=== PATIENT | female | born 1960 | race Caucasian/White ===

== ENCOUNTER → 2016-10-29 | Outpatient (CLI) | payer MEDICAID ==
--- NOTE | 2016-10-29 14:37 | XR ---
EXAMINATION TYPE: XR knee complete LT DATE OF EXAM: 10/29/2016 2:25 PM COMPARISON: NONE HISTORY: Pain TECHNIQUE: 3 views are submitted. FINDINGS: Hypertrophic change and narrowing of the medial compartment of the knee joint and patellofemoral join t noted. Osseous structures are intact. No acute fracture seen. IMPRESSION: 1. No acute fracture or dislocation. 2. Osteoarthritis.
== END | disposition home or self-care (01) ==
LOC: RADXRMAIN 14:09
PROVIDERS: ATTEND Internal Medicine Geriatric Medicine
DX: M17.12 Unilateral primary osteoarthritis, left knee (principal)

== ENCOUNTER → 2016-10-29 | Outpatient (CLI) | payer MEDICAID ==
[2016-10-29 14:23] LABS: Basophils # (A) 0.1 k/uL (0-0.2); Basophils % (A) 1 %; CH 30.9; CHCM 34.4; Eosinophils # (A) 0.3 k/uL (0-0.7); Eosinophils % (A) 3 %; HCT 40.9 % (34.0-46.0); HDW 2.94; HGB 13.4 gm/dL (11.4-16.0); Luc # (Auto) 0.27; Luc % (Auto) 3; Lymphocytes # (A) 2.3 k/uL (1.0-4.8); Lymphocytes % (A) 22 %; MCH 29.6 pg (25.0-35.0); MCHC 32.8 g/dL (31.0-37.0); MCV 90.2 fL (80.0-100.0); Mean Platelet Volume 7.2; Monocytes # (A) 0.4 k/uL (0-1.0); Monocytes % (A) 4 %; Neutrophils # (A) 7.3 k/uL (1.3-7.7); Neutrophils % (A) 68 %; RBC 4.54 m/uL (3.80-5.40); RDW 12.9 % (11.5-15.5); WBC 10.6 k/uL (3.8-10.6); WBC (Perox) 10.96
[2016-10-29 14:35] LABS: ALT 34 U/L (9-52); AST 21 U/L (14-36); Alkaline Phosphatase 113 U/L (38-126); Anion Gap 14 mmol/L; Blood Urea Nitrogen 30 mg/dL (7-17); Calcium 9.6 mg/dL (8.4-10.2); Carbon Dioxide 27 mmol/L (22-30); Chloride 102 mmol/L (98-107); Glucose 151 mg/dL (74-99); Non-African American GFR(MDRD) 54 (>60 ml/min/1.73 sqM); Potassium 4.4 mmol/L (3.5-5.1); Sodium 143 mmol/L (137-145); Total Bilirubin 0.5 mg/dL (0.2-1.3); Total Protein 7.2 g/dL (6.3-8.2)
--- NOTE | 2016-10-29 15:06 | US ---
EXAMINATION TYPE: US venous doppler duplex LE LT DATE OF EXAM: 10/29/2016 2:42 PM COMPARISON: NONE CLINICAL HISTORY: R60.0 Edema. Pt states left leg pain and swelling SIDE PERFORMED: Left Grayscale, color Doppler, spectral Doppler imaging performed of the deep veins of the left lower extr emity. Left common femoral, superficial femoral, popliteal veins all compress normally and show no ab normal luminal echoes, there is normal color flow Left Leg: Negative for DVT IMPRESSION: No evident deep venous thrombosis within the deep veins of the left lower extremity as d escribed.
[2016-10-29 15:14] LABS: Hemoglobin A1C 6.6 % (4.2-6.1)
== END | disposition home or self-care (01) ==
LOC: RADUSWWP 13:34
PROVIDERS: ATTEND Internal Medicine Geriatric Medicine
DX: R60.0 Localized edema (principal); M79.605 Pain in left leg
CPT/HCPCS: 36415; 80053; 83036; 85025

== ENCOUNTER → 2017-07-07 | Outpatient (CLI) | payer MEDICAID | END | disposition home or self-care (01) | LOC: LABWHC1 11:21 | DX: D32.0 Benign neoplasm of cerebral meninges (principal) | CPT/HCPCS: 36415; 82565; 84520 ==

== ENCOUNTER → 2017-08-06 | Outpatient (CLI) | payer MEDICAID ==
--- NOTE | 2017-08-07 13:31 | MM ---
Reason for exam: screening (asymptomatic). Last mammogram was performed 1 year ago. History: Patient is postmenopausal and history of other cancer. Family history of breast cancer in paternal grandmother. Physical Findings: A clinical breast exam by your physician is recommended on an annual basis and results should be correlated with mammographic findings. MG 3D Screening Mammo W/Cad Bilateral CC and MLO view(s) were taken. Prior study comparison: August 06, 2016, bilateral MG 3d screening mammo w/cad. August 01, 2015, bilateral MG screening mammo w CAD. The breast tissue is heterogeneously dense. This may lower the sensitivity of mammography. No suspicious abnormality. No significant changes when compared with prior studies. ASSESSMENT: Negative, BI-RAD 1 RECOMMENDATION: Routine screening mammogram of both breasts in 1 year.
== END | disposition home or self-care (01) ==
LOC: RADMAMWWP 16:16
PROVIDERS: ATTEND Internal Medicine Geriatric Medicine
DX: Z12.31 Encounter for screening mammogram for malignant neoplasm of breast (principal)
CPT/HCPCS: 77063; G0202

== ENCOUNTER → 2017-09-23 | Outpatient (CLI) | payer MEDICAID ==
[2017-09-23 08:40] LABS: HCT 39.2 % (34.0-46.0); MCH 29.6 pg (25.0-35.0); MCHC 33.2 g/dL (31.0-37.0); Mean Platelet Volume 7.3; Platelet Count 243 k/uL (150-450); RBC 4.41 m/uL (3.80-5.40); WBC 8.6 k/uL (3.8-10.6)
[2017-09-23 08:59] LABS: Appearance,Urine Clear (Clear); Bilirubin,Urine Negative (Negative); Blood,Urine Negative (Negative); Color,Urine Yellow; Glucose,Urine (UA) 3+ (Negative); Ketones,Urine Negative (Negative); Leukocyte Esterase,Urine Moderate (Negative); Mucus,Urine Rare /hpf; Nitrite,Urine Negative (Negative); Protein,Urine Negative (Negative); RBC,Urine <1 /hpf (0-5); Specific Gravity,Urine 1.011 (1.001-1.035); Squamous Epithelial Cell,Urine 8 /hpf (0-4); Urobilinogen,Urine <2.0 mg/dL (<2.0); WBC,Urine 5 /hpf (0-5)
[2017-09-23 09:05] LABS: ALT 25 U/L (9-52); AST 14 U/L (14-36); Albumin 4.2 g/dL (3.5-5.0); Alkaline Phosphatase 122 U/L (38-126); Anion Gap 14 mmol/L; Blood Urea Nitrogen 22 mg/dL (7-17); Calcium 9.8 mg/dL (8.4-10.2); Carbon Dioxide 25 mmol/L (22-30); Chloride 102 mmol/L (98-107); Glucose 214 mg/dL (74-99); Phosphorus 3.7 mg/dL (2.5-4.5); Sodium 141 mmol/L (137-145); Total Bilirubin 0.4 mg/dL (0.2-1.3)
[2017-09-23 09:07] LABS: Potassium 4.8 mmol/L (3.5-5.1)
== END | disposition home or self-care (01) ==
LOC: LABWHC1 07:31
PROVIDERS: ATTEND Internal Medicine Nephrology
DX: N39.0 Urinary tract infection, site not specified (principal); E83.39 Other disorders of phosphorus metabolism; D64.9 Anemia, unspecified
CPT/HCPCS: 36415; 80053; 81001; 84100; 85027

== ENCOUNTER → 2017-10-22 | Outpatient (CLI) | payer MEDICAID ==
--- NOTE | 2017-10-23 11:15 | BD ---
EXAMINATION TYPE: MG DEXA axial skeleton. DATE OF EXAM: 10/22/2017 COMPARISON: NONE CLINICAL HISTORY: Age- related osteoporosis M81.0 Height: 5 FT 7 1/4 IN Weight: 230 FRAX RISK QUESTIONS: Alcohol (3 or more units per day): NO Family History (Parent hip fracture): NO Glucocorticoids (More than 3mos): NO (Ex: prednisone, prednisolone, methylprednisolone, dexamethasone, and hydrocortisone). History of Fracture in Adulthood: NO Secondary Osteoporosis: 1. Type 1 Diabetes: NO 2. Hyperthyroidism: NO 3. Menopause before 45: NO 4. Malnutrition: NO 5. Chronic liver disease: NO Rheumatoid Arthritis: NO Current Tobacco Use: NO RISK FACTORS HISTORY OF: Family History of Osteoporosis: YES Active: YES Postmenopausal woman: PART HYST AGE 54 MEDICATIONS: Additional Medications: METFORMIN,LISINOPRIL, NORVASC, ASPIRIN, LIPITOR, Additional History: EXAM MEASUREMENTS: Bone mineral densitometry was performed using the [employer]. Bone mineral density as measured about the Lumbar spine is: ----- L1-L4(G/cm2): 1.416 T Score Values are as follows: ----- L2: 2.5 ----- L3: 2.0 ----- L4: 1.8 ----- L1-L4: 2.0 BASELINE Bone mineral density about the R hip (g/cm2): 1.041 Bone mineral density about the L hip (g/cm2): 1.029 T Score values are as follows: -----R Neck: 0.0 -----L Neck: -0.1 -----R Total: 0.1 -----L Total: 0.1 BASELINE IMPRESSION: No evidence for osteoporosis or osteopenia. NOTE: T-SCORE=SD OF THE YOUNG ADULT MEAN.
== END | disposition home or self-care (01) ==
LOC: RADBDWWP 13:52
PROVIDERS: ATTEND Internal Medicine Geriatric Medicine
DX: M81.0 Age-related osteoporosis without current pathological fracture (principal)
CPT/HCPCS: 77080

== ENCOUNTER → 2017-11-02 | Outpatient (CLI) | payer MEDICAID ==
[2017-11-02 07:41] LABS: Appearance,Urine Clear (Clear); Bilirubin,Urine Negative (Negative); Blood,Urine Negative (Negative); Color,Urine Yellow; Glucose,Urine (UA) 1+ (Negative); Ketones,Urine Negative (Negative); Leukocyte Esterase,Urine Trace (Negative); Mucus,Urine Rare /hpf; Nitrite,Urine Negative (Negative); Protein,Urine Negative (Negative); RBC,Urine 1 /hpf (0-5); Specific Gravity,Urine 1.012 (1.001-1.035); Squamous Epithelial Cell,Urine 1 /hpf (0-4); Urobilinogen,Urine <2.0 mg/dL (<2.0); WBC,Urine 2 /hpf (0-5)
[2017-11-02 07:59] LABS: Albumin 4.1 g/dL (3.5-5.0); Calcium 9.8 mg/dL (8.4-10.2); Magnesium 1.5 mg/dL (1.6-2.3); Phosphorus 4.1 mg/dL (2.5-4.5); Potassium 4.4 mmol/L (3.5-5.1); Total Bilirubin 0.5 mg/dL (0.2-1.3); Uric Acid 5.2 mg/dL (3.7-7.4)
[2017-11-02 08:21] LABS: Basophils # (A) 0.1 k/uL (0-0.2); Basophils % (A) 1 %; Eosinophils # (A) 0.4 k/uL (0-0.7); Eosinophils % (A) 6 %; HGB 13.3 gm/dL (11.4-16.0); Lymphocytes # (A) 1.6 k/uL (1.0-4.8); Lymphocytes % (A) 23 %; MCH 31.1 pg (25.0-35.0); MCV 86.5 fL (80.0-100.0); Mean Platelet Volume 7.1; Monocytes # (A) 0.3 k/uL (0-1.0); Monocytes % (A) 4 %; Neutrophils # (A) 4.7 k/uL (1.3-7.7); Neutrophils % (A) 66 %; Platelet Count 213 k/uL (150-450); RBC 4.28 m/uL (3.80-5.40); WBC 7.1 k/uL (3.8-10.6)
[2017-11-02 11:04] LABS: Iron Saturation 22.16 (12.00-45.00)
[2017-11-02 11:11] LABS: Parathyroid Hormone Intact 69.6 pg/mL (14.0-72.0)
[2017-11-02 11:12] LABS: Vitamin D 25 Hydroxy 25.8 ng/mL (30.0-100.0)
[2017-11-02 11:51] LABS: Folate, Serum 14.2 ng/mL
[2017-11-04 16:18] LABS: Albumin 4.18 g/dL (3.80-4.90); Gamma Globulin 0.95 g/dL (0.70-1.50)
== END | disposition home or self-care (01) ==
LOC: LABWHC1 06:47
PROVIDERS: ATTEND Internal Medicine Nephrology
DX: E11.22 Type 2 diabetes mellitus with diabetic chronic kidney disease (principal); N18.3 Chronic kidney disease, stage 3 (moderate); E55.9 Vitamin D deficiency, unspecified; E21.3 Hyperparathyroidism, unspecified; E83.39 Other disorders of phosphorus metabolism; M10.9 Gout, unspecified; N39.0 Urinary tract infection, site not specified; D64.9 Anemia, unspecified
CPT/HCPCS: 36415; 80053; 80061; 81001; 82306; 82607; 82728; 82746; 83036; 83540; 83550; 83735; 83970; 84100; 84165; 84550; 85025; 86335

== ENCOUNTER → 2017-11-12 | Outpatient (CLI) | payer MEDICAID ==
--- NOTE | 2017-11-13 17:04 | MR ---
EXAMINATION TYPE: MR knee LT wo con DATE OF EXAM: 11/12/2017 COMPARISON: Radiographs 10/29/2016 HISTORY: 57 year-old female left knee pain, Osteoarthritis TECHNIQUE: Multiplanar, multisequence imaging of the left knee is performed without IV contrast. FINDINGS: ACL and PCL are intact. Mild edematous change within the soft tissues adjacent to the intact MCL. LCL complex is intact. The medial meniscus is diffusely degenerative, torn, and extruded. There is severe full-thickness car tilage loss especially along the mid and peripheral weightbearing aspect of the medial compartment wi th extensive degenerative subchondral cystic changes and marrow edema. Marginal spurring. The extrude d medial meniscus has mass effect and causes bowing of the MCL. Some degenerative signal within the anterior horn of the lateral meniscus. Marginal spurring in the l ateral compartment. Focal moderate thickness cartilage fissure along the mid patella and mild irregular cartilage loss al geeta the trochlear facets. There is marginal spurring in the patellofemoral compartment. Extensor mechanism is intact. Nonspecific anterior subcutaneous soft tissue swelling. A large knee joint effusion without significant Pappas's cyst. Mild muscular edema within the upper la teral gastrocnemius. Normal popliteal artery anatomy with mild diffuse muscular atrophy. No suspicious bone marrow replace ment. IMPRESSION: 1. Severe medial compartment osteoarthrosis with a diffusely degenerative, torn, and extruded medial meniscus. 2. Grade 1 MCL sprain. 3. Within the patellofemoral compartment, there is a focal area of moderate thickness cartilage loss along the mid patella. Marginal spurring and mild superficial cartilage irregularity along the trochl ear facets. 4. Large knee joint effusion.
== END | disposition home or self-care (01) ==
LOC: RADMRIMAIN 12:32
PROVIDERS: ATTEND Orthopaedic Surgery
DX: S83.412A Sprain of medial collateral ligament of left knee, initial encounter (principal); S83.242A Other tear of medial meniscus, current injury, left knee, initial encounter; M76.892 Other specified enthesopathies of left lower limb, excluding foot; M17.12 Unilateral primary osteoarthritis, left knee

== ENCOUNTER → 2018-01-26 | Outpatient (CLI) | payer MEDICAID ==
[2018-01-26 12:22] LABS: T4, Free (Free Thyroxine) 1.1 ng/dL (0.78-2.19)
[2018-01-26 17:33] LABS: Hemoglobin A1C 6.6 % (4.0-6.0)
== END | disposition home or self-care (01) ==
LOC: LABWHC1 07:40
PROVIDERS: ATTEND Nurse Practitioner Family
DX: E11.9 Type 2 diabetes mellitus without complications (principal); E07.9 Disorder of thyroid, unspecified
CPT/HCPCS: 36415; 82043; 82570; 83036; 84439; 84443

== ENCOUNTER → 2018-01-26 | Outpatient (CLI) | payer MEDICAID ==
[2018-01-26 10:33] LABS: Appearance,Urine Clear (Clear); Bilirubin,Urine Negative (Negative); Blood,Urine Negative (Negative); Color,Urine Light Yellow; Glucose,Urine (UA) Negative (Negative); Ketones,Urine Negative (Negative); Leukocyte Esterase,Urine Negative (Negative); Nitrite,Urine Negative (Negative); Protein,Urine Negative (Negative); Specific Gravity,Urine 1.007 (1.001-1.035); Urobilinogen,Urine <2.0 mg/dL (<2.0)
[2018-01-26 10:41] LABS: HCT 37.7 % (34.0-46.0); HGB 12.9 gm/dL (11.4-16.0); MCH 30.2 pg (25.0-35.0); MCHC 34.1 g/dL (31.0-37.0); MCV 88.4 fL (80.0-100.0); Mean Platelet Volume 7.3; Platelet Count 209 k/uL (150-450); RBC 4.26 m/uL (3.80-5.40); RDW 12.7 % (11.5-15.5); WBC 9.5 k/uL (3.8-10.6)
[2018-01-26 10:52] LABS: Albumin 4.4 g/dL (3.5-5.0); Total Protein 6.9 g/dL (6.3-8.2)
[2018-01-26 10:53] LABS: Calcium 9.7 mg/dL (8.4-10.2); Potassium 4.7 mmol/L (3.5-5.1); Total Bilirubin 0.5 mg/dL (0.2-1.3)
[2018-01-26 10:57] LABS: Prothrombin Time 9.6 sec (9.0-12.0)
[2018-01-26 11:53] LABS: Partial Thromboplastin Time 20.6 sec (22.0-30.0)
== END | disposition home or self-care (01) ==
LOC: LABPAT 07:37
PROVIDERS: ATTEND Orthopaedic Surgery
DX: Z01.818 Encounter for other preprocedural examination (principal)
CPT/HCPCS: 80053; 81003; 85027; 85610; 85730; 87070

== ENCOUNTER 2018-02-08 05:53 | Inpatient (IN) | payer MEDICAID ==
[2018-02-03 17:44] VITALS: BMI 33.5
[~2018-02-08 05:53] MED LIST: ACETAMINOPHEN TAB 500 MG TAB PO ONE; DEXAMETHASONE SOD PHOSPHATE 10 MG/ML 1 ML VIAL IV ONE; LACTATED RINGERS 1,000 ML IV SCH; MIDAZOLAM 2 MG/2 ML VIAL IV PRN; ONDANSETRON 4 MG/2 ML VIAL IVP ONE; ONDANSETRON ODT 4 MG TAB PO ONE; SCOPOLAMINE 1.5MG/72HR PATCH TRANSDERM ONE; TRANEXAMIC ACID 1,000 MG in SODIUM CHLORIDE 0.9% 50 ML IVPB ONE; ceFAZolin IN SWFI 2 GM/20 ML SYRINGE IVP ONE; fentaNYL (PF) 50 MCG/ML 2 ML AMP IV PRN
[2018-02-08] MEDS ORDERED: LIDOCAINE 1% 20 ML VIAL (10MG/ML) FOR IV START INTRADERMA ONE (06:45)
[2018-02-08 07:08] LABS: Glucose,Whole Blood 98 mg/dL (75-99)
[2018-02-08] MEDS ORDERED: ROPIVACAINE 246.25 MG, EPINEPHrine 0.5 MG, KETOROLAC 30 MG, cloNIDine HCL/PF 80 MCG, WA... MISCELLANE ONE ×5 (07:43)
[2018-02-08] MEDS ORDERED: diphenhydrAMINE 50 MG/ML 1 ML VIAL ONE (07:46)
[2018-02-08] MEDS ORDERED: TRANEXAMIC ACID 1,000 MG/10 ML VIAL ONE (07:46)
[2018-02-08] MEDS ORDERED: fentaNYL (PF) 50 MCG/ML 2 ML AMP ONE (07:46)
[2018-02-08] MEDS ORDERED: PROPOFOL 10 MG/ML 20 ML VIAL IV ONE (07:46)
[2018-02-08] MEDS ORDERED: MIDAZOLAM 2 MG/2 ML VIAL ONE ×2 (07:46)
[2018-02-08] MEDS ORDERED: SODIUM CHLORIDE 0.9% 100 ML BAG ONE (07:46)
[2018-02-08] MEDS ORDERED: ceFAZolin 3,000 MG in SODIUM CHLORIDE 0.9% IRRIGATIO 3,000 ML IRRIGATION ONE (08:52)
[2018-02-08] MEDS ORDERED: LACTATED RINGERS 1,000 ML IV ONE ×4 (09:10)
[2018-02-08] MEDS ORDERED: HYDROcodone/APAP 5-325MG 1 EACH TAB PO PRN ×2 (10:26)
[2018-02-08] MEDS ORDERED: NALOXONE 0.4 MG/ML 1 ML VIAL IV PRN (10:26)
[2018-02-08] MEDS ORDERED: NA PHOS,M-B/NA PHOS,DI-BA 133 ML ENEMA RECTAL PRN (10:26)
[2018-02-08] MEDS ORDERED: hydrOXYzine PAMOATE 25 MG CAP PO PRN (10:26)
[2018-02-08] MEDS ORDERED: MAGNESIUM HYDROXIDE 2,400 MG/10 ML CUP PO PRN (10:26)
[2018-02-08] MEDS ORDERED: ONDANSETRON 4 MG/2 ML VIAL IVP PRN (10:26)
[2018-02-08] MEDS ORDERED: HYDROmorphone 0.5 MG/0.5 ML SYRINGE IVP PRN ×2 (10:26)
[2018-02-08] MEDS ORDERED: BISACODYL 10 MG SUPP RECTAL PRN (10:26)
[2018-02-08] MEDS ORDERED: LACTATED RINGERS 1,000 ML IV SCH (10:30)
[2018-02-08 10:32] LABS: Glucose,Whole Blood 168 mg/dL (75-99)
[2018-02-08 10:41] VITALS: RESP 16
--- NOTE | 2018-02-08 10:47 | XR ---
EXAMINATION TYPE: XR knee limited LT DATE OF EXAM: 02/08/2018 COMPARISON: NONE TECHNIQUE: Two views submitted HISTORY: Post op FINDINGS: There is a prosthetic knee in near anatomic alignment. There is soft tissue edema and emphysema. IMPRESSION: 1. Postoperative change. Appears in near-anatomic alignment
[2018-02-08] MEDS: INSULIN ASPART 100 UNIT/ML 1 ML 10 ML VIAL SQ SCH ×2 (12:51→17:10)
--- NOTE | 2018-02-08 13:08 | P.OP ---
Date of Procedure: 02/08/18 Procedure(s) Performed: PREOPERATIVE DIAGNOSIS: Left knee severe osteoarthritis with genu varum POSTOPERATIVE DIAGNOSIS: Left knee severe osteoarthritis with genu varum OPERATION: Left knee cemented total replacement arthroplasty. ANESTHESIA: Spinal ESTIMATED BLOOD LOSS: 100 ml. RECYCLING CENTER OPERATOR: Steph Whitehead PA-C (assistance with: patient positioning, retraction, exposure, hemostasis, leg positioning, implantation, irrigation, closure, dressing) COMPLICATIONS: None apparent. COMPONENTS IMPLANTED: Persona system from [employer] INDICATIONS: Mrs. King is a 57-year-old female with a history of knee osteoarthritis. The operation of knee replacement has been discussed at length in the office, as well as potential risks and complications. These are inclusive of, but not limited to: bleeding, infection, scarring, discomfort, blood vessel and nerve damage, need for further surgery, failure to relieve symptoms, persistence, recurrence, or worsening of problems, loosening, dislocation, wear, blood clot, pulmonary embolism, , gait dysfunction, stiffness, and other risks as discussed in the office. The patient elects to proceed and the consent form has been signed. PROCEDURE: The patient was taken to the operating room and positioned on the operating room table in the supine position. Anesthesia was initiated. Care was taken to make sure that all pressure points were adequately padded. The operative lower extremity was prepped and draped in the usual aseptic fashion using ChloraPrep. Ioban drape was used for the case and the patient received intravenous antibiotics within one hour of the incision. A standard leg ware was used for the case. Tourniquet was applied but was not inflated. Time-out was called confirming the patient's identity, side, procedure and administration of antibiotics. The incision was then created midline directly over the knee, carried down through skin and into the subcutaneous tissues and down to fascia. Full thickness subcutaneous medial flap was developed. Medial parapatellar arthrotomy was performed and the interior of the knee was inspected. There was end-stage osteoarthritis of the knee with a mild to moderate genu varum type deformity. The fat pad was excised and proximal medial release on the tibia was completed using meticulous dissection and a curved osteotome. The anterior cruciate ligament was taken down. Note was made of significant attrition of the anterior and significant degenerative appearance of the posterior cruciate ligaments. The exposure was excellent. The knee was flexed 90 degrees and the patella was everted. A spot was chosen on the femur approximately 1 cm anterior to the posterior cruciate ligament insertion and an intramedullary hole was created within the femur. The intramedullary guide was then set to 5 degrees of valgus. The distal cutting block was attached and pinned into position. An appropriate amount of distal femoral resection was set. The oscillating saw was then used to make the distal femoral cut. This cut was confirmed to be flat with the flat end of an osteotome. The retractors were placed around the tibia and the tibial surface was addressed. The angle and depth of resection was adjusted using an extramedullary cutting guide. The guide had a built-in 3 degree posterior slope cut. Once the cutting guide was adjusted appropriately and in line with the axis of the tibia and confirmed to be in good position in relation to the second metatarsal and transmalleolar axis, the tibial cut was then created with protection of the posterior neurovascular structures and the collateral ligaments. The tibial cut surface was removed and sized. Femoral sizing was then accomplished using anterior referencing. Care was taken to analyze the posterior condyles for signs of deficiency or severe wear, and adjustments to the guide were made, as appropriate. 3 degree external rotation pins were placed. The cutting jig for the femur was applied to these pins. The planned cuts were further analyzed prior to performing them with the oscillating saw. No femoral notching was produced. Bone fragments were removed and the cut surfaces were finished, as necessary, with a reciprocating saw. Spacer block technique was then used to confirm that the flexion and extension gaps were equal. Soft tissue releases and adjustment of the tibial and/or femoral cuts were made, as necessary, until the gaps were equal. This included release of the posterior cruciate ligament, which was tight in this patient and , if left unreleased, would have resulted in poor kinematics and possibly early loosening. The femur was then further finished for a posterior cruciate ligament substituting component. Patellar resurfacing was performed using a reamer. The size of the required patellar component was estimated and the patellar surface was then reamed down to a residual thickness which would recreate the [place] thickness with the component. The placement of the patellar component was influenced by the degree of patellar subluxation, if any, noted on the preoperative x-rays. Prior to placing trial components, anesthetic solution consisting of ropivicaine with epinephrine, ketorolac, and clonidine was injected carefully and methodically in a grid pattern using aspiration technique into the soft tissue around the knee circumferentially, starting with the deeper tissues first and progressing to fascia, and then finally the skin/subcutaneous tissue. Particular care was taken when injecting the posterior capsule. The trial components were inserted. The tibial tray was allowed to self center and the patella was noted to track very well. The position of the tibial component was marked and the tibia was then finished for a stemmed tibial component. Cement was mixed on the back table and applied to the final components. Trial components were removed and the cut surfaces of the bone were pulse lavaged thoroughly and dried. Cement was then applied to the tibial surface and pressurized into the surface using finger pressurization technique. The tibial component was then applied and excess cement was removed after it was impacted securely and noted to be flush with the cut surface. In similar fashion, the cement was applied to the cut femoral surface, pressurized in using finger pressurization and the component was impacted into place. Excess cement was removed. The polyethylene spacer was then implanted and locked into position. The patellar component was then applied in similar technique and a patellar clamp was used to hold the patella in place as the cement hardened. Once the cement had fully hardened, the knee was reinspected. Any other cement extrusion was removed and final kinematic testing showed range of motion from 0 to 130 degrees with excellent stability, both medially and laterally and appropriate alignment of the leg. Patellar tracking was excellent. The knee was then thoroughly pulse lavaged with normal saline. Hemostasis was obtained with electrocautery and IV tranexamic acid, 1 g given prior to inflation of the tourniquet and another gram given at the time of closure. Closure was with #2 Ethibond in the fascia and supplemented with #2 Quill, 2-0 Vicryl suture was used for the subcutaneous tissues and 3-0 Quill for the skin. Dermabond/Steri-Strips were then applied. A lightly compressive dressing was applied using Webril and an Benton wrap. The patient was then transferred to stretcher and taken to the recovery room in stable condition. Sponge and needle counts were correct.
[2018-02-08 14:55] VITALS: BP 135/72; PULSE 78; TEMP 96.9
--- NOTE | 2018-02-08 15:00 | P.CONS ---
History of Present Illness - Reason for Consult Consult date: 02/08/18 medical management - History of Present Illness This is a 57-year-old female, one of Dr. 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 Patient underwent left knee arthroplasty, she was evaluated today, she's doing well postoperatively. She denies any chest pain, calf pain, dizziness, shortness of breath, nausea or vomiting. Patient reports pain is well controlled, vital signs are stable. Review of Systems Constitutional: Denies chills, Denies fever Ears, nose, mouth and throat: Denies dysphagia, Denies headache, Denies hoarseness, Denies nasal congestion, Denies nasal discharge Cardiovascular: Denies chest pain, Denies edema, Denies leg edema, Denies orthopnea, Denies palpitations, Denies syncope Respiratory: Denies congestion, Denies cough, Denies dyspnea, Denies pain, Denies respiratory infections, Denies wheezing Gastrointestinal: Denies abdominal pain, Denies constipation, Denies diarrhea, Denies dyspepsia, Denies heartburn, Denies nausea, Denies vomiting Genitourinary: Denies flank pain, Denies hematuria, Denies kidney stones, Denies urgency, Denies urinary frequency Integumentary: Denies pruritus, Denies rash, Denies sores, Denies wounds Neurological: Denies confusion, Denies loss of vision, Denies paralysis, Denies paresthesias, Denies seizures, Denies tingling Psychiatric: Denies anxiety, Denies confusion, Denies insomnia, Denies irritability, Denies mood swings, Denies suicidal ideation Endocrine: Denies fatigue, Denies flushing, Denies palpitations, Denies weight change Past Medical History Past Medical History: CVA/TIA, Diabetes Mellitus, Hyperlipidemia, Hypertension, Osteoarthritis (OA), Renal Disease Additional Past Medical History / Comment(s): left basal ganglia stroke 2011-no residual effects, follows up w/Sam q6 mo. History of Any Multi-Drug Resistant Organisms: None Reported Past Surgical History: Bladder Surgery, Hernia Repair, Hysterectomy Additional Past Surgical History / Comment(s): Colonoscopy, Crainiotomy for Atypical Brain tumor Past Anesthesia/Blood Transfusion Reactions: No Reported Reaction Smoking Status: Never smoker - Past Family History Mother Family Medical History: Cancer Medications and Allergies Home Medications Medication Instructions Recorded Confirmed Type Aspirin 325 mg PO DAILY 07/22/16 02/08/18 History Atorvastatin [Lipitor] 20 mg PO HS 07/22/16 02/08/18 History Lisinopril [Zestril] 20 mg PO BID 07/22/16 02/08/18 History amLODIPine [Norvasc] 5 mg PO BID 07/22/16 02/08/18 History Cholecalciferol (Vitamin D3) 15,000 unit PO Q14D 02/03/18 02/08/18 History [Vitamin D3] Ferrous Sulfate [Feosol] 325 mg PO BID 02/03/18 02/08/18 History Insulin Glargine,Hum.rec.anlog 16 unit SQ HS 02/03/18 02/08/18 History [Lantus Solostar] glipiZIDE/METFORMIN HCL 2 tab PO BID 02/03/18 02/08/18 History [glipiZIDE/METFORMIN HCL 5-500 mg] HYDROcodone/APAP 5-325MG [[place] 1 - 2 each PO Q4-6H PRN #90 tab 02/08/18 Rx 5-325] Sennosides-Docusate Sodium 1 tab PO BID #60 tablet 02/08/18 Rx [Senokot-S] Warfarin [Coumadin] 2.5 mg PO DAILY #1 tab 02/08/18 Rx Allergies Allergy/AdvReac Type Severity Reaction Status Date / Time No Known Allergies Allergy Verified 02/08/18 12:32 Physical Exam Vitals: Vital Signs Temp Pulse Pulse Resp BP BP Pulse Ox 02/08/18 10:52 79 16 108/59 97 02/08/18 10:37 78 16 109/60 97 02/08/18 10:22 97.2 F L 78 17 104/56 93 L 02/08/18 06:52 98.0 F 85 16 173/82 97 Intake and Output 02/07/18 02/08/18 02/08/18 22:59 06:59 14:59 Intake Total 200 1001 Output Total 400 Balance 200 601 Intake: IV 200 1001 Output: Urine 300 Estimated Blood Loss 100 Other: Voiding Method Bedpan Weight 100.244 kg - Constitutional General appearance: cooperative, no no acute distress - EENT Eyes: EOMI, PERRLA, normal appearance ENT: hearing grossly normal, normal oropharynx - Neck Neck: no lymphadenopathy, normal ROM, no thyromegaly - Respiratory Respiratory: bilateral: CTA, negative: diminished, rales, rhonchi, wheezing - Cardiovascular Rhythm: regular Heart sounds: normal: S1, S2 - Gastrointestinal General gastrointestinal: no distended, no hepatomegaly, no organomegaly, soft, no tenderness - Integumentary Integumentary: normal, no rash, no ulcer - Neurologic Neurologic: CNII-XII intact - Musculoskeletal Musculoskeletal: strength equal bilaterally - Psychiatric Psychiatric: A&O x's 3, appropriate affect, intact judgment & insight Results Labs: Abnormal Lab Results - Last 24 Hours (Table) 02/08/18 Range/Units 10:28 POC Glucose (mg/dL) 168 H (75-99) mg/dL Assessment and Plan Plan: 1. Left knee osteoarthritis status post left knee arthroplasty, postop day 0. Will continue with Coumadin for anticoagulation, pain management per orthopedics orders, encouraged incentive spirometry. 2. Diabetes type 2. Continue with NovoLog per sliding scale and Levemir 16 units. 3. Hypertension. Norvasc 5 mg twice a day and lisinopril 20 mg twice a day 4. Hyperlipidemia. Continue atorvastatin 20 mg 5. Benign neoplasm of cerebral meninges status post craniotomy. Stable continue with routine MRIs, last one June, continues to follow Dr. Dwyer. 6. Chronic kidney disease stage II. Stable, continues to follow with nephrology as outpatient. 7. DVT and GI prophylaxis. Continue Coumadin The above impression and plan of care have been discussed and directed by signing physician. Danielle Tellez nurse practitioner acting as scribe for signing physician.
[2018-02-08] MEDS ORDERED: ceFAZolin IN SWFI 2 GM/20 ML SYRINGE IVP SCH (16:00)
[2018-02-08 17:35] LABS: Glucose,Whole Blood 340 mg/dL (75-99)
[2018-02-08] MEDS ORDERED: WARFARIN 5 MG TAB PO ONE (18:00)
[2018-02-08] MEDS ORDERED: INSULIN DETEMIR 100 UNIT/ML 10 ML VIAL SQ SCH (21:00)
[2018-02-08] MEDS ORDERED: LISINOPRIL 20 MG TAB PO SCH (21:00)
[2018-02-08] MEDS ORDERED: ATORVASTATIN 20 MG TAB PO SCH (21:00)
[2018-02-08] MEDS ORDERED: SENNOSIDES-DOCUSATE SODIUM 1 EACH TAB PO SCH (21:00)
[2018-02-08] MEDS ORDERED: FERROUS SULFATE 325 MG TAB PO SCH (21:00)
[2018-02-08] MEDS ORDERED: amLODIPine 5 MG TAB PO SCH (21:00)
[2018-02-09] MEDS ORDERED: MELOXICAM 7.5 MG TAB PO SCH (09:00)
[2018-02-15] MEDS ORDERED: CHOLECALCIFEROL 1,000 UNIT TAB PO SCH (09:00)
== END 2018-02-08 18:22 | disposition home health service (06) | DRG 470 ==
LOC: 2ORMAIN 05:53 → 3SUR 10:17
PROVIDERS: ADMIT Orthopaedic Surgery; ATTEND Orthopaedic Surgery
PROC: 0SRD0J9 Replacement of Left Knee Joint with Synthetic Substitute, Cemented, Open Approach (ICD-10-PCS; principal; 2018-02-08 07:30)
DX: M17.12 Unilateral primary osteoarthritis, left knee (principal); I12.9 Hypertensive chronic kidney disease with stage 1 through stage 4 chronic kidney disease, or unspecified chronic kidney disease; N18.2 Chronic kidney disease, stage 2 (mild); E11.22 Type 2 diabetes mellitus with diabetic chronic kidney disease; E78.00 Pure hypercholesterolemia, unspecified; E66.3 Overweight; Z79.01 Long term (current) use of anticoagulants; Z79.899 Other long term (current) drug therapy; Z86.011 Personal history of benign neoplasm of the brain; Z98.890 Other specified postprocedural states; Z83.3 Family history of diabetes mellitus; Z82.49 Family history of ischemic heart disease and other diseases of the circulatory system; Z90.710 Acquired absence of both cervix and uterus; Z79.82 Long term (current) use of aspirin; Z86.73 Personal history of transient ischemic attack (TIA), and cerebral infarction without residual deficits; Z91.81 History of falling; Z79.4 Long term (current) use of insulin; Z80.9 Family history of malignant neoplasm, unspecified; Z86.2 Personal history of diseases of the blood and blood-forming organs and certain disorders involving the immune mechanism; Z86.69 Personal history of other diseases of the nervous system and sense organs; Z68.33 Body mass index [BMI] 33.0-33.9, adult; Z86.39 Personal history of other endocrine, nutritional and metabolic disease
CPT/HCPCS: 88300

== ENCOUNTER → 2018-03-01 | Outpatient (CLI) | payer MEDICAID ==
--- NOTE | 2018-03-01 13:32 | US ---
EXAMINATION TYPE: Ultrasound MSK left knee, extensor mechanism DATE OF EXAM: 03/01/2018 COMPARISON: Radiographs 02/08/2018 CLINICAL HISTORY: 57-year-old female M25.562 Left knee pain,M17.12 Unilateral primary. Limited progre ss with physical therapy, unable to extend the knee. Technique: Multiple sonographic images of the left extensor mechanism including the quadriceps tendon and patellar tendons. FINDINGS: Findings suggest rupture of the quadriceps tendon. The proximal balled up stump is located approximat bryan 3.0 cm from the upper pole of the patella. There is an intervening gap of approximately 1.8 cm an d a 1.4 cm length of distal insertional fibers comprising the distal stump . The patellar tendon is i ntact and normal. IMPRESSION: 1. Quadriceps tendon rupture located 1.4 cm above the patellar insertion. The proximal stump is retra cted 3 cm from the upper pole of the patella. 2. The patellar tendon remains intact. Findings were discussed with the patient. Patient reports that she has an orthopedic appointment the following morning.
== END | disposition home or self-care (01) ==
LOC: RADUSWWP 09:23
PROVIDERS: ATTEND Orthopaedic Surgery
DX: S76.112A Strain of left quadriceps muscle, fascia and tendon, initial encounter (principal)

== ENCOUNTER 2018-03-05 07:00 | Day surgery (SDC) | payer MEDICAID ==
[2018-03-02 11:29] VITALS: BMI 33.5
[~2018-03-05 07:00] MED LIST changes: -LACTATED RINGERS 1,000 ML IV SCH; +LIDOCAINE 1% 20 ML VIAL (10MG/ML) FOR IV START INTRADERMA PRN; -ONDANSETRON ODT 4 MG TAB PO ONE; -SCOPOLAMINE 1.5MG/72HR PATCH TRANSDERM ONE
[2018-03-05] MEDS: LACTATED RINGERS 1,000 ML IV SCH ×3 (07:32→15:05)
[2018-03-05] MEDS ORDERED: ROPIVACAINE 246.25 MG, EPINEPHrine 0.5 MG, KETOROLAC 30 MG, cloNIDine HCL/PF 80 MCG, WA... MISCELLANE ONE ×5 (07:32)
[2018-03-05 07:44] LABS: Glucose,Whole Blood 142 mg/dL (75-99)
[2018-03-05 07:51] LABS: Prothrombin Time 9.7 sec (9.0-12.0)
[2018-03-05] MEDS ORDERED: MIDAZOLAM 2 MG/2 ML VIAL ONE (08:44)
[2018-03-05] MEDS ORDERED: fentaNYL (PF) 50 MCG/ML 2 ML AMP ONE (08:44)
[2018-03-05] MEDS ORDERED: PROPOFOL 10 MG/ML 20 ML VIAL IV ONE (08:44)
[2018-03-05] MEDS ORDERED: SODIUM CHLORIDE 0.9% 100 ML BAG ONE (08:44)
[2018-03-05] MEDS ORDERED: TRANEXAMIC ACID 1,000 MG/10 ML VIAL ONE (08:44)
[2018-03-05 10:55] VITALS: TEMP 97.2
[2018-03-05 11:07] LABS: Glucose,Whole Blood 192 mg/dL (75-99)
[2018-03-05 12:18] VITALS: RESP 18
[2018-03-05] MEDS ORDERED: HYDROcodone/APAP 5-325MG 1 EACH TAB PO ONE (14:25)
[2018-03-05 14:46] VITALS: BP 138/65; PULSE 90
--- NOTE | 2018-03-05 17:37 | P.OP ---
Date of Procedure: 03/05/18 Procedure(s) Performed: PREOPERATIVE DIAGNOSES: 1. Left knee quadriceps tendon rupture POSTOPERATIVE DIAGNOSES: 1. Left knee suture failure of quad repair following total knee replacement ( failure along suture line) PROCEDURES PERFORMED: 1. Quadriceps tendon repair, open using #5 and #2 FiberWire, #3 Ethibond, and #3 strata fix sutures ANESTHESIA: Spinal CAMP DISHWASHER: None COMPLICATIONS: None ESTIMATED BLOOD LOSS: 30 mL. DISPOSITION: To post-anesthesia care unit INDICATIONS: Berta is a 57-year-old female who lost active knee extension early after the total knee replacement. Ultrasound test showed ruptured quad tendon. She presents to the operating room for repair. I suspect that the quad has failed along the suture line considering the early loss of extension this patient experienced. I have discussed the risks of the procedure as well as potential complications as being inclusive of, but not limited to: Bleeding, infection, scarring, discomfort, blood vessel and/or nerve damage, need for further surgery, stiffness, weakness, persistent limp, need for further procedures, blood clot, pulmonary embolism, , and other risks. The patient is aware these risks and wishes to proceed with surgery. The consent form has been signed. PROCEDURE: After appropriate consent was obtained, the patient was taken to the operating room placed in the supine position. Anesthesia was initiated, and after confirmation of adequate anesthesia, the patient was carefully positioned. Care was taken to make sure that all pressure points were adequately padded. Prepping and draping were completed in the usual aseptic fashion using ChloraPrep. Timeout was called, confirming patient identity, side , procedure, and administration of antibiotics. Range of motion of the knee was gently tested and found to be -5 to 120. The limb was exsanguinated with an Esmarch bandage and the tourniquet was inflated to 350 mmHg. Incision was created along the previous incision line and carried down through skin into subcu tissues and down to fascia. Fascia was exposed with a blunt elevator and the extent of the medial parapatellar arthrotomy was exposed and inspected. There was obvious disruption of the suture line at the superior aspect of the patella. There was approximately a 2 cm gap in this location but healthy quad tendon was noted on both sides of the gap, indicating a suture line dehiscence. Suture material in this region was disrupted. A remnant of the #3 Vicryl and several small fragments of the strata fix were carefully removed using a rongeur. From the medial midportion of the patella down to the tibial tubercle, the fascial repair was intact and normal in appearance. Using a combination of elevator, knife, and curette, organizing tissue between the quadriceps tendon proper was carefully removed leaving healthy tissue to repair. Hemostasis was obtained using electrocautery after tourniquet deflation. The interior of the knee was thoroughly irrigated with normal saline as was the fascial area. 3 #5 FiberWire sutures were placed in interrupted [id number] fashion evenly spaced where the quad had . Next, #2 FiberWire was used to secure the areas between these sutures. Next, #3 Ethibond suture in 2 locations was used for additional support. Finally, a # 3 strata fix suture was placed in running fashion from the midportion of the medial aspect of the patella to the upper extent of the quad split. These sutures were all placed with the knee in approximately 45 of flexion. Next, 2-0 Vicryl sutures were used for the subcutaneous tissue followed by 20 strata fix suture for the skin in running subcuticular fashion. The knee was then placed into approximately 120 degrees of flexion and the Dermabond tape was used over the incision. Sterile dressing was applied. Patient tolerated the procedure well and taken to recovery room in stable condition. Knee immobilizer was applied. Sponge and needle counts were correct.
== END 2018-03-05 15:17 | disposition home or self-care (01) ==
LOC: OR 07:00
PROVIDERS: ATTEND Orthopaedic Surgery
DX: S76.112A Strain of left quadriceps muscle, fascia and tendon, initial encounter (principal); X58.XXXA Exposure to other specified factors, initial encounter; M25.462 Effusion, left knee; Z96.652 Presence of left artificial knee joint; I10 Essential (primary) hypertension; E78.5 Hyperlipidemia, unspecified; E11.9 Type 2 diabetes mellitus without complications; N28.9 Disorder of kidney and ureter, unspecified; Z79.01 Long term (current) use of anticoagulants; Z79.82 Long term (current) use of aspirin; Z79.891 Long term (current) use of opiate analgesic; Z79.4 Long term (current) use of insulin; Z79.899 Other long term (current) drug therapy; Z86.73 Personal history of transient ischemic attack (TIA), and cerebral infarction without residual deficits
CPT/HCPCS: 85610; 27385; J2250; J0171; J1100; J2405; J3010; J1885; J2795; J2704; J0735; J0690

== ENCOUNTER → 2018-04-27 | Outpatient (CLI) | payer MEDICAID ==
[2018-04-27 13:43] LABS: Basophils # (A) 0.1 k/uL (0-0.2); Basophils % (A) 1 %; Eosinophils # (A) 0.3 k/uL (0-0.7); Eosinophils % (A) 3 %; HCT 39.8 % (34.0-46.0); HGB 12.9 gm/dL (11.4-16.0); Lymphocytes # (A) 2.2 k/uL (1.0-4.8); Lymphocytes % (A) 20 %; MCH 28.5 pg (25.0-35.0); MCHC 32.4 g/dL (31.0-37.0); MCV 88.2 fL (80.0-100.0); Mean Platelet Volume 6.8; Monocytes # (A) 0.4 k/uL (0-1.0); Monocytes % (A) 4 %; Neutrophils # (A) 7.9 k/uL (1.3-7.7); Neutrophils % (A) 71 %; Platelet Count 240 k/uL (150-450); RBC 4.51 m/uL (3.80-5.40); RDW 13.3 % (11.5-15.5)
[2018-04-27 13:54] LABS: Appearance,Urine Cloudy (Clear); Bilirubin,Urine Negative (Negative); Blood,Urine Negative (Negative); Color,Urine Yellow; Glucose,Urine (UA) Negative (Negative); Hyaline Casts,Urine 6 /lpf (0-2); Ketones,Urine Negative (Negative); Leukocyte Esterase,Urine Large (Negative); Mucus,Urine Few /hpf; Nitrite,Urine Negative (Negative); Protein,Urine Trace (Negative); RBC,Urine 4 /hpf (0-5); Specific Gravity,Urine 1.025 (1.001-1.035); Squamous Epithelial Cell,Urine 7 /hpf (0-4); WBC,Urine 5 /hpf (0-5)
[2018-04-27 13:56] LABS: Albumin 4.3 g/dL (3.5-5.0); Calcium 9.9 mg/dL (8.4-10.2); Magnesium 1.3 mg/dL (1.6-2.3); Phosphorus 4.6 mg/dL (2.5-4.5); Potassium 4.4 mmol/L (3.5-5.1); Uric Acid 6.7 mg/dL (3.7-7.4)
[2018-04-27 19:11] LABS: Iron Saturation 18.57 (12.00-45.00)
[2018-04-27 20:07] LABS: Parathyroid Hormone Intact 52.6 pg/mL (14.0-72.0)
== END | disposition home or self-care (01) ==
LOC: LABWHC1 13:07
PROVIDERS: ATTEND Internal Medicine Nephrology
DX: N39.0 Urinary tract infection, site not specified (principal); M10.9 Gout, unspecified; D50.9 Iron deficiency anemia, unspecified; N18.3 Chronic kidney disease, stage 3 (moderate); E55.9 Vitamin D deficiency, unspecified
CPT/HCPCS: 36415; 80048; 81001; 82040; 82306; 82728; 83540; 83550; 83735; 83970; 84100; 84550; 85025

== ENCOUNTER → 2018-08-06 | Outpatient (CLI) | payer MEDICAID ==
--- NOTE | 2018-08-12 11:37 | MM ---
Reason for exam: screening (asymptomatic). Last mammogram was performed 1 year ago. History: Patient is postmenopausal and history of other cancer. Family history of breast cancer in paternal grandmother. Physical Findings: A clinical breast exam by your physician is recommended on an annual basis and results should be correlated with mammographic findings. MG 3D Screening Mammo W/Cad Bilateral CC and MLO view(s) were taken. Prior study comparison: August 06, 2017, bilateral MG 3d screening mammo w/cad. August 06, 2016, bilateral MG 3d screening mammo w/cad. The breast tissue is heterogeneously dense. This may lower the sensitivity of mammography. Lateral left asymmetric density does not persist on 3D views. No significant changes when compared with prior studies. ASSESSMENT: Negative, BI-RAD 1 RECOMMENDATION: Routine screening mammogram of both breasts in 1 year.
== END | disposition home or self-care (01) ==
LOC: RADMAMWWP 17:00
PROVIDERS: ATTEND Internal Medicine Geriatric Medicine
DX: Z12.31 Encounter for screening mammogram for malignant neoplasm of breast (principal)
CPT/HCPCS: 77063; 77067

== ENCOUNTER → 2018-12-03 | Outpatient (CLI) | payer MEDICAID ==
[2018-12-03 09:16] LABS: Basophils # (A) 0.1 k/uL (0-0.2); Basophils % (A) 1 %; Eosinophils # (A) 0.3 k/uL (0-0.7); Eosinophils % (A) 4 %; HCT 39.6 % (34.0-46.0); HGB 13.2 gm/dL (11.4-16.0); Lymphocytes # (A) 1.8 k/uL (1.0-4.8); Lymphocytes % (A) 23 %; MCH 30.8 pg (25.0-35.0); MCHC 33.4 g/dL (31.0-37.0); MCV 92.3 fL (80.0-100.0); Mean Platelet Volume 7.7; Monocytes # (A) 0.3 k/uL (0-1.0); Monocytes % (A) 4 %; Neutrophils # (A) 5.1 k/uL (1.3-7.7); Neutrophils % (A) 66 %; Platelet Count 238 k/uL (150-450); RBC 4.29 m/uL (3.80-5.40); RDW 13.5 % (11.5-15.5); WBC 7.8 k/uL (3.8-10.6)
[2018-12-03 09:18] LABS: Appearance,Urine Clear (Clear); Bilirubin,Urine Negative (Negative); Blood,Urine Negative (Negative); Color,Urine Light Yellow; Glucose,Urine (UA) 1+ (Negative); Ketones,Urine Negative (Negative); Leukocyte Esterase,Urine Small (Negative); Mucus,Urine Rare /hpf; Nitrite,Urine Negative (Negative); PH, Urine 6.5 (5.0-8.0); Protein,Urine Negative (Negative); Specific Gravity,Urine 1.018 (1.001-1.035); Squamous Epithelial Cell,Urine 2 /hpf (0-4); Urobilinogen,Urine <2.0 mg/dL (<2.0); WBC,Urine 2 /hpf (0-5)
[2018-12-03 16:57] LABS: Parathyroid Hormone Intact 81.6 pg/mL (14.0-72.0)
[2018-12-03 17:43] LABS: Iron Saturation 21.25 (12.00-45.00)
[2018-12-03 17:47] LABS: Albumin 4.5 g/dL (3.80-4.90); Anion Gap 6.8 mmol/L (4.00-12.00); Calcium 9.7 mg/dL (8.7-10.3); Carbon Dioxide 28.2 mmol/L (21.6-31.8); Magnesium 1.6 mg/dL (1.5-2.4); Phosphorus 3.7 mg/dL (2.4-5.1); Potassium 4.8 mmol/L (3.5-5.5); Uric Acid 6.7 mg/dL (2.9-7.7)
[2018-12-03 17:52] LABS: Vitamin D 25 Hydroxy 48.9 ng/mL (30.0-100.0)
[2018-12-03 18:21] LABS: Hemoglobin A1C 6.8 % (4.0-6.0)
[2018-12-03 19:54] LABS: Creatinine,Urine Random 68.3 mg/dL
[2018-12-03 19:55] LABS: Total Protein,Urine Random 13.3 mg/dL (0.0-13.5)
== END | disposition home or self-care (01) ==
LOC: LABWHC1 08:52
PROVIDERS: ATTEND Internal Medicine Nephrology
DX: E11.22 Type 2 diabetes mellitus with diabetic chronic kidney disease (principal); N18.3 Chronic kidney disease, stage 3 (moderate); D63.1 Anemia in chronic kidney disease; E55.9 Vitamin D deficiency, unspecified; N25.81 Secondary hyperparathyroidism of renal origin; M10.9 Gout, unspecified; N39.0 Urinary tract infection, site not specified
CPT/HCPCS: 36415; 80048; 81001; 82040; 82306; 82570; 82728; 83036; 83540; 83550; 83735; 83970; 84100; 84156; 84550; 85025

== ENCOUNTER → 2019-06-09 | Outpatient (CLI) | payer MEDICAID ==
[2019-06-09 10:27] LABS: Basophils # (A) 0.1 k/uL (0-0.2); Basophils % (A) 1 %; Eosinophils # (A) 0.3 k/uL (0-0.7); Eosinophils % (A) 4 %; HCT 38.3 % (34.0-46.0); Lymphocytes # (A) 2.1 k/uL (1.0-4.8); Lymphocytes % (A) 25 %; MCH 30.5 pg (25.0-35.0); MCV 89.9 fL (80.0-100.0); Mean Platelet Volume 6.4; Monocytes # (A) 0.4 k/uL (0-1.0); Monocytes % (A) 5 %; Neutrophils # (A) 5.5 k/uL (1.3-7.7); Neutrophils % (A) 64 %; Platelet Count 275 k/uL (150-450); RBC 4.26 m/uL (3.80-5.40); RDW 12.4 % (11.5-15.5); WBC 8.6 k/uL (3.8-10.6)
[2019-06-09 10:41] LABS: Appearance,Urine Clear (Clear); Bilirubin,Urine Negative (Negative); Blood,Urine Negative (Negative); Color,Urine Yellow; Glucose,Urine (UA) Trace (Negative); Ketones,Urine Negative (Negative); Leukocyte Esterase,Urine Negative (Negative); Nitrite,Urine Negative (Negative); PH, Urine 5.5 (5.0-8.0); Protein,Urine Negative (Negative); Specific Gravity,Urine 1.017 (1.001-1.035); Urobilinogen,Urine <2.0 mg/dL (<2.0)
[2019-06-09 17:16] LABS: % Iron Saturation 27.58 (12.00-45.00); Albumin 4.6 g/dL (3.80-4.90); Albumin/Globulin Ratio 2.19 (1.60-3.17); Anion Gap 7.9 mmol/L (4.00-12.00); BUN/Creat Ratio 30.77 Ratio (12.00-20.00); Carbon Dioxide 27.1 mmol/L (21.6-31.8); Chol/HDL Ratio 4.39; Globulin 2.1 g/dL (1.6-3.3); Magnesium 1.7 mg/dL (1.5-2.4); Non-African American GFR(CKD) 44.9 (60.0-200.0); Phosphorus 4.9 mg/dL (2.4-5.1); Potassium 5.1 mmol/L (3.5-5.5); Total Bilirubin 0.4 mg/dL (0.3-1.2); Total Protein 6.7 g/dL (6.2-8.2); Uric Acid 6.8 mg/dL (2.9-7.7)
[2019-06-09 17:25] LABS: Ferritin 35.5 ng/mL (10.0-291.0)
[2019-06-09 19:07] LABS: Hemoglobin A1C 5.6 % (4.0-6.0)
[2019-06-09 19:36] LABS: Urine Creatinine 108.5 mg/dL
[2019-06-09 19:51] LABS: Creatinine,Urine Random 110.4 mg/dL
== END | disposition home or self-care (01) ==
LOC: LABWHC1 09:35
PROVIDERS: ATTEND Internal Medicine Nephrology
DX: N18.3 Chronic kidney disease, stage 3 (moderate) (principal); R80.9 Proteinuria, unspecified; E83.42 Hypomagnesemia; E55.9 Vitamin D deficiency, unspecified; N25.81 Secondary hyperparathyroidism of renal origin; M10.9 Gout, unspecified; N39.0 Urinary tract infection, site not specified; D63.1 Anemia in chronic kidney disease
CPT/HCPCS: 36415; 80053; 80061; 81003; 82043; 82306; 82570; 82728; 83036; 83540; 83550; 83735; 83970; 84100; 84156; 84439; 84443; 84550; 85025

== ENCOUNTER → 2019-07-04 | Outpatient (CLI) | payer MEDICAID ==
[2019-07-05 06:48] LABS: African American GFR (CKD) 57.3 (60.0-200.0); Anion Gap 10.9 mmol/L (4.00-12.00); BUN/Creat Ratio 34.17 Ratio (12.00-20.00); Calcium 9.5 mg/dL (8.7-10.3); Carbon Dioxide 25.1 mmol/L (21.6-31.8); Non-African American GFR(CKD) 49.4 (60.0-200.0); Potassium 4.7 mmol/L (3.5-5.5)
== END | disposition home or self-care (01) ==
LOC: LABWHC1 14:45
PROVIDERS: ATTEND Nurse Practitioner Family
DX: N18.3 Chronic kidney disease, stage 3 (moderate) (principal)
CPT/HCPCS: 36415; 80048

== ENCOUNTER → 2019-08-11 | Outpatient (CLI) | payer MEDICAID ==
--- NOTE | 2019-08-15 09:23 | MM ---
Reason for exam: screening (asymptomatic). Last mammogram was performed 1 year ago. History: Patient is postmenopausal and history of other cancer. Family history of breast cancer in paternal grandmother. Took hormonal contraceptives for 5 years. Physical Findings: A clinical breast exam by your physician is recommended on an annual basis and results should be correlated with mammographic findings. MG 3D Screening Mammo W/Cad Bilateral CC and MLO view(s) were taken. Prior study comparison: August 01, 2015, bilateral MG screening mammo w CAD. July 31, 2014, bilateral MG screening mammo w CAD. The breast tissue is heterogeneously dense. This may lower the sensitivity of mammography. There is chronic nodularity in the right upper outer quadrant. No significant changes when compared with prior studies. ASSESSMENT: Negative, BI-RAD 1 RECOMMENDATION: Routine screening mammogram of both breasts in 1 year.
== END ==
LOC: RADMAMWWP 14:58
PROVIDERS: ATTEND Internal Medicine Geriatric Medicine
DX: Z12.31 Encounter for screening mammogram for malignant neoplasm of breast (principal)
CPT/HCPCS: 77063; 77067

== ENCOUNTER → 2020-01-05 | Outpatient (CLI) | payer MEDICAID ==
[2020-01-05 11:58] LABS: Appearance,Urine Cloudy (Clear); Bacteria,Urine Rare /hpf; Bilirubin,Urine Negative (Negative); Blood,Urine Negative (Negative); Color,Urine Yellow; Glucose,Urine (UA) Trace (Negative); Ketones,Urine Negative (Negative); Leukocyte Esterase,Urine Moderate (Negative); Mucus,Urine Rare /hpf; Nitrite,Urine Negative (Negative); Protein,Urine Negative (Negative); RBC,Urine 1 /hpf (0-5); Specific Gravity,Urine 1.018 (1.001-1.035); Squamous Epithelial Cell,Urine 8 /hpf (0-4); Urobilinogen,Urine <2.0 mg/dL (<2.0); WBC,Urine 2 /hpf (0-5)
[2020-01-05 12:36] LABS: Basophils # (A) 0.1 k/uL (0-0.2); Basophils % (A) 1 %; Eosinophils # (A) 0.3 k/uL (0-0.7); Eosinophils % (A) 4 %; HCT 40.8 % (34.0-46.0); HGB 13.1 gm/dL (11.4-16.0); Lymphocytes # (A) 1.9 k/uL (1.0-4.8); Lymphocytes % (A) 22 %; MCH 29.5 pg (25.0-35.0); MCHC 32.1 g/dL (31.0-37.0); Mean Platelet Volume 8.3; Monocytes # (A) 0.4 k/uL (0-1.0); Monocytes % (A) 5 %; Neutrophils # (A) 5.8 k/uL (1.3-7.7); Neutrophils % (A) 66 %; Platelet Count 241 k/uL (150-450); RBC 4.44 m/uL (3.80-5.40); RDW 12.1 % (11.5-15.5); WBC 8.7 k/uL (3.8-10.6)
[2020-01-05 15:16] LABS: Protein/Creatinine Ratio,Urine 0.058
[2020-01-05 20:17] LABS: % Iron Saturation 27.48 (12.00-45.00); African American GFR (CKD) 57.3 (60.0-200.0); Albumin 4.4 g/dL (3.80-4.90); Albumin/Globulin Ratio 1.83 (1.60-3.17); Anion Gap 7.2 mmol/L (4.00-12.00); BUN/Creat Ratio 27.5 Ratio (12.00-20.00); Calcium 9.7 mg/dL (8.7-10.3); Carbon Dioxide 24.8 mmol/L (21.6-31.8); Chol/HDL Ratio 3.52; Globulin 2.4 g/dL (1.6-3.3); LDL Cholesterol,Calculated 91.6 mg/dL (0.0-131.0); Magnesium 1.7 mg/dL (1.5-2.4); Non-African American GFR(CKD) 49.4 (60.0-200.0); Phosphorus 3.8 mg/dL (2.4-5.1); Potassium 5.1 mmol/L (3.5-5.5); Total Bilirubin 0.5 mg/dL (0.3-1.2); Total Protein 6.8 g/dL (6.2-8.2); Uric Acid 6.8 mg/dL (2.9-7.7); VLDL Calculation 19.4 mg/dL (5.00-40.00)
[2020-01-05 20:25] LABS: Ferritin 38.2 ng/mL (10.0-291.0)
[2020-01-05 21:53] LABS: Hemoglobin A1C 7.6 % (4.0-6.0)
== END | disposition home or self-care (01) ==
LOC: LABWHC1 08:34
PROVIDERS: ATTEND Internal Medicine Geriatric Medicine
DX: I12.9 Hypertensive chronic kidney disease with stage 1 through stage 4 chronic kidney disease, or unspecified chronic kidney disease (principal); N18.3 Chronic kidney disease, stage 3 (moderate); E11.22 Type 2 diabetes mellitus with diabetic chronic kidney disease; D63.1 Anemia in chronic kidney disease; N39.0 Urinary tract infection, site not specified; E55.9 Vitamin D deficiency, unspecified; E21.3 Hyperparathyroidism, unspecified; M10.9 Gout, unspecified; E78.2 Mixed hyperlipidemia
CPT/HCPCS: 36415; 80053; 80061; 81001; 82043; 82306; 82570; 82728; 83036; 83540; 83550; 83735; 83970; 84100; 84156; 84443; 84550; 85025

== ENCOUNTER → 2020-08-29 | Outpatient (CLI) | payer MEDICAID ==
--- NOTE | 2020-09-03 08:19 | MM ---
Reason for exam: screening (asymptomatic). Last mammogram was performed 1 year and 1 month ago. History: Patient is postmenopausal and history of other cancer. Family history of breast cancer in paternal grandmother. Took hormonal contraceptives for 5 years. Physical Findings: A clinical breast exam by your physician is recommended on an annual basis and results should be correlated with mammographic findings. MG 3D Screening Mammo W/Cad Bilateral CC and MLO view(s) were taken. Prior study comparison: August 11, 2019, bilateral MG 3d screening mammo w/cad. August 06, 2018, bilateral MG 3d screening mammo w/cad. The breast tissue is heterogeneously dense. This may lower the sensitivity of mammography. There is chronic nodularity in the right breast. No significant changes when compared with prior studies. ASSESSMENT: Negative, BI-RAD 1 RECOMMENDATION: Routine screening mammogram of both breasts in 1 year.
== END | disposition home or self-care (01) ==
LOC: RADMAMWWP 14:44
PROVIDERS: ATTEND Internal Medicine Geriatric Medicine
DX: Z12.31 Encounter for screening mammogram for malignant neoplasm of breast (principal)
CPT/HCPCS: 77063; 77067

== ENCOUNTER → 2021-04-22 | Outpatient (CLI) | payer MEDICAID ==
[2021-04-22 15:14] LABS: Basophils % (A) 1.2 %; Eosinophils # (A) 0.28 X 10*3/uL (0.04-0.35); Eosinophils % (A) 3.4 %; HCT 38.6 % (37.2-46.3); HGB 12.7 g/dL (12.0-15.0); Lymphocytes # (A) 2.16 X 10*3/uL (0.90-5.00); Lymphocytes % (A) 26.1 %; MCH 30.2 pg (27.0-32.0); MCHC 32.9 g/dL (32.0-37.0); MCV 91.7 fL (80.0-97.0); Mean Platelet Volume 10.8 fL (9.5-12.2); Monocytes # (A) 0.51 X 10*3/uL (0.20-1.00); Monocytes % (A) 6.2 %; Neutrophils # (A) 5.16 X 10*3/uL (1.80-7.70); Neutrophils % (A) 62.4 %; Platelet Count 205 X 10*3/uL (140-440); RBC 4.21 X 10*6/uL (4.10-5.20); RDW 12.2 % (11.5-14.5); WBC 8.27 X 10*3/uL (4.50-10.00)
[2021-04-22 16:11] LABS: African American GFR (CKD) 70.4 (60.0-200.0); Albumin 4.2 g/dL (3.80-4.90); Albumin/Globulin Ratio 1.75 (1.60-3.17); Anion Gap 7.8 mmol/L (4.00-12.00); Calcium 9.4 mg/dL (8.7-10.3); Carbon Dioxide 27.2 mmol/L (21.6-31.8); Chol/HDL Ratio 3.46; Globulin 2.4 g/dL (1.6-3.3); LDL Cholesterol,Calculated 92.8 mg/dL (0.0-131.0); Non-African American GFR(CKD) 60.8 (60.0-200.0); Potassium 4.4 mmol/L (3.5-5.5); Total Bilirubin 0.4 mg/dL (0.2-1.2); Total Protein 6.6 g/dL (6.2-8.2); VLDL Calculation 20.2 mg/dL (5.00-40.00)
[2021-04-22 18:22] LABS: Hemoglobin A1C 9.6 % (4.0-6.0)
[2021-04-22 18:45] LABS: Urine Creatinine 112.1 mg/dL
== END | disposition home or self-care (01) ==
LOC: LABWHC1 10:19
PROVIDERS: ATTEND Nurse Practitioner Family
DX: E11.9 Type 2 diabetes mellitus without complications (principal)
CPT/HCPCS: 36415; 80053; 80061; 82043; 82570; 83036; 84439; 84443; 85025

== ENCOUNTER → 2021-07-15 | Outpatient (CLI) | payer MEDICAID ==
[2021-07-15 08:02] LABS: Appearance,Urine Cloudy (Clear); Bilirubin,Urine Negative (Negative); Blood,Urine Negative (Negative); Color,Urine Light Yellow; Glucose,Urine (UA) 1+ (Negative); Ketones,Urine Negative (Negative); Leukocyte Esterase,Urine Moderate (Negative); Mucus,Urine Rare /hpf; Nitrite,Urine Negative (Negative); PH, Urine 6.5 (5.0-8.0); Protein,Urine Negative (Negative); RBC,Urine <1 /hpf (0-5); Specific Gravity,Urine 1.016 (1.001-1.035); Squamous Epithelial Cell,Urine 6 /hpf (0-4); Urobilinogen,Urine <2.0 mg/dL (<2.0); WBC,Urine 1 /hpf (0-5)
[2021-07-15 08:34] LABS: Creatinine,Urine Random 77.8 mg/dL; Protein/Creatinine Ratio,Urine 0.103
[2021-07-15 10:32] LABS: Basophils # (A) 0.11 X 10*3/uL (0.00-0.10); Basophils % (A) 1.4 %; Eosinophils # (A) 0.67 X 10*3/uL (0.04-0.35); Eosinophils % (A) 8.3 %; HCT 38.9 % (37.2-46.3); HGB 12.7 g/dL (12.0-15.0); Lymphocytes # (A) 1.79 X 10*3/uL (0.90-5.00); Lymphocytes % (A) 22.2 %; MCH 30.1 pg (27.0-32.0); MCHC 32.6 g/dL (32.0-37.0); MCV 92.2 fL (80.0-97.0); Mean Platelet Volume 10.6 fL (9.5-12.2); Monocytes % (A) 6.2 %; Neutrophils # (A) 4.97 X 10*3/uL (1.80-7.70); Neutrophils % (A) 61.4 %; Platelet Count 217 X 10*3/uL (140-440); RBC 4.22 X 10*6/uL (4.10-5.20); RDW 12.3 % (11.5-14.5); WBC 8.08 X 10*3/uL (4.50-10.00)
[2021-07-15 11:08] LABS: % Iron Saturation 15.08 (12.00-45.00); African American GFR (CKD) 70.4 (60.0-200.0); Albumin 4.2 g/dL (3.8-4.9); Anion Gap 11.4 mmol/L (10.00-18.00); BUN/Creat Ratio 22.1 Ratio (12.00-20.00); Blood Urea Nitrogen 22.1 mg/dL (9.0-27.0); Calcium 9.5 mg/dL (8.7-10.3); Carbon Dioxide 26.6 mmol/L (20.0-27.5); Ferritin 21.8 ng/mL (10.0-291.0); Magnesium 2.1 mg/dL (1.5-2.4); Non-African American GFR(CKD) 60.8 (60.0-200.0); Phosphorus 3.6 mg/dL (2.4-5.1); Potassium 4.3 mmol/L (3.5-5.5); Uric Acid 6.6 mg/dL (2.9-7.7)
== END | disposition home or self-care (01) ==
LOC: LABWHC1 06:59
PROVIDERS: ATTEND Nurse Practitioner Family
DX: E83.42 Hypomagnesemia (principal); N18.30 Chronic kidney disease, stage 3 unspecified
CPT/HCPCS: 36415; 80048; 81001; 82040; 82306; 82570; 82728; 83540; 83550; 83735; 83970; 84100; 84156; 84550; 85025

== ENCOUNTER → 2021-10-08 | Outpatient (CLI) | payer MEDICAID ==
--- NOTE | 2021-10-08 10:37 | MM ---
Reason for exam: screening (asymptomatic). Last mammogram was performed 1 year and 1 month ago. History: Patient is postmenopausal and history of other cancer. Family history of breast cancer in paternal grandmother. Took hormonal contraceptives for 5 years. Physical Findings: A clinical breast exam by your physician is recommended on an annual basis and results should be correlated with mammographic findings. MG 3D Screening Mammo W/Cad Bilateral CC, MLO, and XCCL view(s) were taken. Prior study comparison: August 29, 2020, bilateral MG 3d screening mammo w/cad. August 11, 2019, bilateral MG 3d screening mammo w/cad. There are scattered fibroglandular densities. There are benign appearing vascular calcifications bilaterally. There is no discrete abnormality. ASSESSMENT: Benign, BI-RAD 2 RECOMMENDATION: Routine screening mammogram of both breasts in 1 year.
== END | disposition home or self-care (01) ==
LOC: RADMAMWWP 07:50
PROVIDERS: ATTEND Internal Medicine Geriatric Medicine
DX: Z12.31 Encounter for screening mammogram for malignant neoplasm of breast (principal)
CPT/HCPCS: 77063; 77067

== ENCOUNTER → 2022-01-21 | Outpatient (CLI) | payer MEDICAID ==
[2022-01-21 10:24] LABS: Creatinine,Urine Random 60.9 mg/dL; Protein/Creatinine Ratio,Urine 0.099
[2022-01-21 14:41] LABS: Basophils # (A) 0.06 X 10*3/uL (0.00-0.10); Basophils % (A) 0.8 %; Eosinophils # (A) 0.25 X 10*3/uL (0.04-0.35); Eosinophils % (A) 3.5 %; HCT 43.1 % (37.2-46.3); Immature Grans, Automated 0.7 %; Lymphocytes # (A) 1.88 X 10*3/uL (0.90-5.00); Lymphocytes % (A) 26.4 %; MCH 30.2 pg (27.0-32.0); MCHC 32.5 g/dL (32.0-37.0); MCV 93.1 fL (80.0-97.0); Mean Platelet Volume 10.8 fL (9.5-12.2); Monocytes # (A) 0.45 X 10*3/uL (0.20-1.00); Monocytes % (A) 6.3 %; NRBC Per 100 WBC 0 /100 WBCS (0.0-0.0); Neutrophils # (A) 4.42 X 10*3/uL (1.80-7.70); Neutrophils % (A) 62.3 %; Platelet Count 223 X 10*3/uL (140-440); RBC 4.63 X 10*6/uL (4.10-5.20); RDW 12.7 % (11.5-14.5); WBC 7.11 X 10*3/uL (4.50-10.00)
[2022-01-21 15:02] LABS: % Iron Saturation 39.34 (12.00-45.00); Anion Gap 13.8 mmol/L (10.00-18.00); BUN/Creat Ratio 18.78 Ratio (12.00-20.00); Blood Urea Nitrogen 16.9 mg/dL (9.0-27.0); Calcium 9.4 mg/dL (8.7-10.3); Carbon Dioxide 24.2 mmol/L (20.0-27.5); Magnesium 1.6 mg/dL (1.5-2.4); Phosphorus 3.2 mg/dL (2.4-5.1); Potassium 4.4 mmol/L (3.5-5.5); Uric Acid 6.2 mg/dL (2.9-7.7)
[2022-01-21 15:12] LABS: Appearance,Urine Clear (Clear); Bilirubin,Urine Negative (Negative); Blood,Urine Negative (Negative); Color,Urine Yellow (Yellow); Ketones,Urine Negative (Negative); Nitrite,Urine Negative (Negative); Specific Gravity,Urine 1.014 (1.001-1.030); Urobilinogen,Urine 0.2 (0.2,1.0)
[2022-01-21 15:36] LABS: Bacteria,Urine None Seen /HPF (None Seen)
[2022-01-21 15:47] LABS: Albumin 4.3 g/dL (3.8-4.9)
== END | disposition home or self-care (01) ==
LOC: LABWHC1 07:09
PROVIDERS: ATTEND Internal Medicine Nephrology
DX: N18.30 Chronic kidney disease, stage 3 unspecified (principal)
CPT/HCPCS: 36415; 80048; 81001; 82040; 82306; 82570; 82728; 83540; 83550; 83735; 83970; 84100; 84156; 84550; 85025

== ENCOUNTER → 2022-05-08 | Outpatient (CLI) | payer MEDICAID ==
[2022-05-08 23:16] LABS: Appearance,Urine Cloudy (Clear); Bilirubin,Urine Negative (Negative); Blood,Urine Negative (Negative); Color,Urine Dark Yellow (Yellow); Ketones,Urine Trace mg/dL (Negative); Nitrite,Urine Negative (Negative); Specific Gravity,Urine 1.031 (1.001-1.030)
[2022-05-09 00:09] LABS: Bacteria,Urine 2+ /HPF (None Seen)
== END | disposition home or self-care (01) ==
LOC: LABWHC1 14:39
PROVIDERS: ATTEND Internal Medicine Geriatric Medicine
DX: E11.22 Type 2 diabetes mellitus with diabetic chronic kidney disease (principal); N18.30 Chronic kidney disease, stage 3 unspecified
CPT/HCPCS: 36415; 81001; 83036

== ENCOUNTER 2022-08-15 06:38 | Day surgery (SDC) | payer MEDICAID ==
[2022-08-13 11:37] VITALS: BMI 35.7
[~2022-08-15 06:38] MED LIST changes: -ACETAMINOPHEN TAB 500 MG TAB PO ONE; -DEXAMETHASONE SOD PHOSPHATE 10 MG/ML 1 ML VIAL IV ONE; +LIDOCAINE 1% (10MG/ML) FOR IV START INTRADERMA PRN; -LIDOCAINE 1% 20 ML VIAL (10MG/ML) FOR IV START INTRADERMA PRN; -MIDAZOLAM 2 MG/2 ML VIAL IV PRN; -ONDANSETRON 4 MG/2 ML VIAL IVP ONE; -TRANEXAMIC ACID 1,000 MG in SODIUM CHLORIDE 0.9% 50 ML IVPB ONE; -ceFAZolin IN SWFI 2 GM/20 ML SYRINGE IVP ONE; -fentaNYL (PF) 50 MCG/ML 2 ML AMP IV PRN
[2022-08-15 07:02] VITALS: TEMP 98.1
[2022-08-15] MEDS: LACTATED RINGERS 1,000 ML IV SCH ×2 (07:10→07:32)
[2022-08-15 07:13] LABS: Glucose,Whole Blood 115 mg/dL (70-110)
[2022-08-15] MEDS ORDERED: LIDOCAINE 2% INJ 20 MG/ML (2 ML VIAL) ONE (07:36)
[2022-08-15] MEDS ORDERED: MIDAZOLAM 2 MG/2 ML VIAL ONE (07:36)
[2022-08-15] MEDS ORDERED: PROPOFOL 10 MG/ML 20 ML VIAL IV ONE (07:36)
[2022-08-15] MEDS ORDERED: fentaNYL (PF) 50 MCG/ML 2 ML AMP ONE (07:36)
[2022-08-15 07:50] LABS: Basophils # (A) 0.1 k/uL (0-0.2); Basophils % (A) 1 %; Eosinophils # (A) 0.7 k/uL (0-0.7); Eosinophils % (A) 8 %; HCT 42.3 % (34.0-46.0); HGB 14.9 gm/dL (11.4-16.0); Lymphocytes # (A) 1.4 k/uL (1.0-4.8); Lymphocytes % (A) 18 %; MCH 31.6 pg (25.0-35.0); MCHC 35.2 g/dL (31.0-37.0); MCV 89.9 fL (80.0-100.0); Mean Platelet Volume 8.6; Monocytes # (A) 0.4 k/uL (0-1.0); Monocytes % (A) 5 %; Neutrophils # (A) 5.2 k/uL (1.3-7.7); Neutrophils % (A) 65 %; Platelet Count 198 k/uL (150-450); RBC 4.71 m/uL (3.80-5.40); RDW 12.9 % (11.5-15.5); WBC 7.9 k/uL (3.8-10.6)
[2022-08-15 08:07] LABS: ALT 29 U/L (4-34); AST 28 U/L (14-36); African American GFR (CKD) 65 (>60 ml/min/1.73 sqM); Albumin 4.2 g/dL (3.5-5.0); Alkaline Phosphatase 113 U/L (38-126); Anion Gap 8 mmol/L; Blood Urea Nitrogen 20 mg/dL (7-17); Calcium 8.9 mg/dL (8.4-10.2); Carbon Dioxide 28 mmol/L (22-30); Chloride 103 mmol/L (98-107); Glucose 127 mg/dL (74-99); Non-African American GFR(CKD) 56 (>60 ml/min/1.73 sqM); Potassium 4.1 mmol/L (3.5-5.1); Sodium 139 mmol/L (137-145); Total Bilirubin 0.8 mg/dL (0.2-1.3); Uric Acid 7.6 mg/dL (3.7-7.4)
--- NOTE | 2022-08-15 08:08 | P.PCN ---
Date of Procedure: 08/15/22 Procedure(s) Performed: Brief history: Patient is a pleasant 62-year-old white female scheduled for an elective upper endoscopy as well as colonoscopy as a part of evaluation of GERD/intermittent dysphagia to solids and prior history of colon polyps. Her last colonoscopy was 5 years ago. Procedure performed: Esophagogastroduodenoscopy with biopsy Colonoscopy Preoperative diagnosis: Anesthesia: [facility] [place] Procedure: After informed consent was obtained from the patient was brought into the endoscopy unit and IV sedation was administered by anesthesia under continuous monitoring. Initially upper endoscopy was done. The Olympus GF 160 video endoscope was inserted inserted into the mouth and esophagus intubated without any difficulty and was gradually advanced into the stomach and duodenum and carefully examined. The bulb and second part of the duodenum appeared normal. The scope was then withdrawn into the stomach adequately insufflated with air and upon careful examination the antrum and mild gastritis and biopsies were done from this area. Mucosa of the body, cardia and fundus appeared normal. The scope was then withdrawn into the esophagus. The GE junction was located at 40 cm to the incisors. It appeared regular with 2 superficial erosions consistent with LA grade B reflux esophagitis. Rest of the esophagus appeared normal. Patient tolerated the procedure well. At this time the patient continued to remain sedation. Initial digital rectal examination was normal. Olympus CF 160 video colonoscope was then inserted into the rectum and gradually advanced to the cecum with moderate to severe difficulty. Careful examination was performed as the scope was gradually being withdrawn. The prep was excellent. The cecum, ascending colon, transverse colon, descending colon, sigmoid colon and rectum appeared normal. Scattered sigmoid diverticulosis. Retroflexion was performed in the rectum and no lesions were noted. Patient tolerated the procedure well. Impression: 1. Upper endoscopy revealed mild antral gastritis and LA grade B reflux esophagitis 2. Colonoscopy was within normal limits with no evidence of colorectal neoplasia except for scattered sigmoid diverticulosis Recommendations: Findings of this examination were discussed with the patient as well as her family. She was advised to follow with the biopsy results. Recommend Pepcid 20 mg twice daily for reflux symptoms. Repeat screening colonoscopy in 5 years.
[2022-08-15 08:19] VITALS: RESP 16
[2022-08-15 08:28] VITALS: BP 135/87; PULSE 78
[2022-08-15 15:30] LABS: Chol/HDL Ratio 5.69 Ratio; LDL Cholesterol,Calculated 184.1 mg/dL (0.0-131.0)
== END 2022-08-15 08:50 | disposition home or self-care (01) ==
LOC: ORWHC2ENDO 06:38
PROVIDERS: ATTEND Internal Medicine Gastroenterology
DX: Z12.11 Encounter for screening for malignant neoplasm of colon (principal); K29.50 Unspecified chronic gastritis without bleeding; K57.30 Diverticulosis of large intestine without perforation or abscess without bleeding; K21.9 Gastro-esophageal reflux disease without esophagitis; Z86.010 Personal history of colon polyps; I10 Essential (primary) hypertension; E78.5 Hyperlipidemia, unspecified; E11.9 Type 2 diabetes mellitus without complications; Z79.84 Long term (current) use of oral hypoglycemic drugs; Z79.899 Other long term (current) drug therapy; Z98.890 Other specified postprocedural states
CPT/HCPCS: 88305; 80061; 80053; 84443; 84550; 85025; 88342; 83036; 45378; 43239; J2250; J3010; J2704; J2001

== ENCOUNTER → 2022-12-11 | Outpatient (CLI) | payer MEDICAID ==
[2022-12-11 15:20] LABS: Eosinophils # (A) 0.49 X 10*3/uL (0.04-0.35); Eosinophils % (A) 4.7 %; HCT 45.3 % (37.2-46.3); HGB 14.9 g/dL (12.0-15.0); Immature Grans, Automated 0.3 %; Lymphocytes # (A) 2.38 X 10*3/uL (0.90-5.00); Lymphocytes % (A) 22.9 %; MCHC 32.9 g/dL (32.0-37.0); MCV 91.3 fL (80.0-97.0); Mean Platelet Volume 10.9 fL (9.5-12.2); Monocytes # (A) 0.61 X 10*3/uL (0.20-1.00); Monocytes % (A) 5.9 %; NRBC Per 100 WBC 0 /100 WBCS (0.0-0.0); Neutrophils # (A) 6.78 X 10*3/uL (1.80-7.70); Neutrophils % (A) 65.2 %; Platelet Count 229 X 10*3/uL (140-440); RBC 4.96 X 10*6/uL (4.10-5.20); RDW 12.7 % (11.5-14.5); WBC 10.39 X 10*3/uL (4.50-10.00)
[2022-12-11 16:50] LABS: ALT 26 U/L (8-44); AST 20 U/L (13-35); African American GFR (CKD) 59.7 (60.0-200.0); Albumin 4.6 g/dL (3.8-4.9); Alkaline Phosphatase 156 U/L (41-126); BUN/Creat Ratio 23.16 Ratio (12.00-20.00); Blood Urea Nitrogen 26.4 mg/dL (9.0-27.0); Carbon Dioxide 23.8 mmol/L (20.0-27.5); Chloride 105 mmol/L (96-109); Chol/HDL Ratio 3.34 Ratio; Globulin 2.7 g/dL (1.6-3.3); Glucose 117 mg/dL (70-110); LDL Cholesterol,Calculated 92.7 mg/dL (0.0-131.0); Non-African American GFR(CKD) 51.5 (60.0-200.0); Potassium 4.9 mmol/L (3.5-5.5); Sodium 143 mmol/L (135-145); Total Protein 7.3 g/dL (6.2-8.2); Uric Acid 5.9 mg/dL (2.9-7.7); VLDL Calculation 18.68 mg/dL (5.00-40.00)
== END | disposition home or self-care (01) ==
LOC: LABWHC1 09:50
PROVIDERS: ATTEND Internal Medicine Geriatric Medicine
DX: E07.9 Disorder of thyroid, unspecified (principal); N18.9 Chronic kidney disease, unspecified; E11.22 Type 2 diabetes mellitus with diabetic chronic kidney disease; D63.1 Anemia in chronic kidney disease
CPT/HCPCS: 36415; 80053; 80061; 83036; 84439; 84443; 84550; 85025

== ENCOUNTER → 2023-04-03 | Outpatient (CLI) | payer MEDICAID ==
[2023-04-03 12:50] LABS: Appearance,Urine Clear (Clear); Bilirubin,Urine Negative (Negative); Blood,Urine Negative (Negative); Color,Urine Light Yellow; Glucose,Urine (UA) 4+ (Negative); Ketones,Urine Negative (Negative); Leukocyte Esterase,Urine Trace (Negative); Mucus,Urine Rare /hpf; Nitrite,Urine Negative (Negative); Protein,Urine Negative (Negative); RBC,Urine 1 /hpf (0-5); Squamous Epithelial Cell,Urine 5 /hpf (0-4); Urobilinogen,Urine <2.0 mg/dL (<2.0); WBC,Urine <1 /hpf (0-5)
[2023-04-03 13:04] LABS: Basophils % (A) 1 %; Eosinophils # (A) 0.3 k/uL (0-0.7); Eosinophils % (A) 4 %; HCT 41.4 % (34.0-46.0); HGB 14.1 gm/dL (11.4-16.0); Lymphocytes # (A) 2.2 k/uL (1.0-4.8); Lymphocytes % (A) 25 %; MCH 31.4 pg (25.0-35.0); MCHC 34.1 g/dL (31.0-37.0); MCV 92.1 fL (80.0-100.0); Mean Platelet Volume 8.4; Monocytes # (A) 0.5 k/uL (0-1.0); Monocytes % (A) 5 %; Neutrophils # (A) 5.7 k/uL (1.3-7.7); Neutrophils % (A) 64 %; Platelet Count 219 k/uL (150-450); RDW 13.6 % (11.5-15.5); WBC 8.8 k/uL (3.8-10.6)
[2023-04-03 13:21] LABS: Creatinine,Urine Random 60.7 mg/dL; Protein/Creatinine Ratio,Urine 0.148
[2023-04-04 01:48] LABS: % Iron Saturation 23.17 (12.00-45.00); Albumin 4.6 d/dL (3.8-4.9); BUN/Creat Ratio 25.55 Ratio (12.00-20.00); Blood Urea Nitrogen 28.1 mg/dL (9.0-27.0); Calcium 9.9 mg/dL (8.7-10.3); Carbon Dioxide 23.1 mmol/L (21.6-31.8); Chloride 102 mmol/L (96-109); Ferritin 59.3 ng/mL (10.0-291.0); Glucose 74 mg/dL (70-110); Iron 95 UG/DL (50-170); Magnesium 2.3 mg/dL (1.5-2.4); Phosphorus 3.9 mg/dL (2.4-5.1); Potassium 5.1 mmol/L (3.5-5.5); Sodium 139 mmol/L (135-145); Total Iron Binding Capacity 410 UG/DL (228-460); Uric Acid 4.7 mg/dL (2.9-7.7)
== END | disposition home or self-care (01) ==
LOC: LABWHC1 11:01
PROVIDERS: ATTEND Nurse Practitioner Family
DX: N18.30 Chronic kidney disease, stage 3 unspecified (principal)
CPT/HCPCS: 36415; 80048; 81001; 82040; 82306; 82570; 82728; 83540; 83550; 83735; 83970; 84100; 84156; 84550; 85025

== ENCOUNTER → 2023-08-28 | Outpatient (CLI) | payer MEDICAID ==
[2023-08-28 11:51] LABS: Basophils # (A) 0.14 X 10*3/uL (0.00-0.10); Basophils % (A) 1.4 %; Eosinophils # (A) 0.41 X 10*3/uL (0.04-0.35); Eosinophils % (A) 4.1 %; HGB 14.3 g/dL (12.0-15.0); Lymphocytes % (A) 18.8 %; MCH 31.4 pg (27.0-32.0); MCV 92.1 FL (80.0-97.0); Monocytes # (A) 0.59 X 10*3/uL (0.20-1.00); Monocytes % (A) 5.8 %; NRBC Per 100 WBC 0 X 10*3/uL (0.00-0.01); Neutrophils # (A) 7.02 X 10*3/uL (1.80-7.70); Neutrophils % (A) 69.5 %; Platelet Count 240 X 10*3/uL (140-440); RBC 4.56 X 10*6/uL (4.10-5.20); RDW 13.2 % (11.5-14.5)
[2023-08-28 13:58] LABS: ALT 19 U/L (8-44); AST 16 U/L (13-35); Albumin 4.3 g/dL (3.8-4.9); Albumin/Globulin Ratio 1.65 Ratio (1.60-3.17); Alkaline Phosphatase 125 U/L (41-126); BUN/Creat Ratio 32.27 Ratio (12.00-20.00); Blood Urea Nitrogen 35.5 mg/dL (9.0-27.0); Carbon Dioxide 22.1 mmol/L (21.6-31.8); Chloride 105 mmol/L (96-109); Chol/HDL Ratio 3.16 Ratio; Globulin 2.6 g/dL (1.6-3.3); Glucose 125 mg/dL (70-110); LDL Cholesterol,Calculated 98.9 mg/dL (0.0-131.0); Potassium 4.6 mmol/L (3.5-5.5); Sodium 140 mmol/L (135-145); T4, Free (Free Thyroxine) 1.26 ng/dL (0.80-1.80); Total Bilirubin 0.4 mg/dL (0.3-1.2); Total Protein 6.9 g/dL (6.2-8.2); VLDL Calculation 14.58 mg/dL (5.00-40.00)
== END | disposition home or self-care (01) ==
LOC: LABWHC1 08:22
PROVIDERS: ATTEND Internal Medicine Geriatric Medicine
DX: Z00.00 Encounter for general adult medical examination without abnormal findings (principal); I12.9 Hypertensive chronic kidney disease with stage 1 through stage 4 chronic kidney disease, or unspecified chronic kidney disease; E11.22 Type 2 diabetes mellitus with diabetic chronic kidney disease; N18.9 Chronic kidney disease, unspecified; E07.9 Disorder of thyroid, unspecified
CPT/HCPCS: 36415; 80053; 80061; 83036; 84439; 84443; 85025

== ENCOUNTER → 2024-01-20 | Outpatient (CLI) | payer MEDICAID ==
[2024-01-20 18:15] LABS: Basophils # (A) 0.09 X 10*3/uL (0.00-0.10); Basophils % (A) 1.2 %; Eosinophils # (A) 0.54 X 10*3/uL (0.04-0.35); Eosinophils % (A) 7.1 %; HCT 40.5 % (37.2-46.3); HGB 13.7 g/dL (12.0-15.0); Lymphocytes # (A) 1.93 X 10*3/uL (0.90-5.00); Lymphocytes % (A) 25.5 %; MCH 32.1 pg (27.0-32.0); MCHC 33.8 g/dL (32.0-37.0); MCV 94.8 FL (80.0-97.0); Mean Platelet Volume 10.7 FL (9.5-12.2); Monocytes # (A) 0.41 X 10*3/uL (0.20-1.00); Monocytes % (A) 5.4 %; NRBC Per 100 WBC 0 X 10*3/uL (0.00-0.01); Neutrophils % (A) 60.7 %; Platelet Count 204 X 10*3/uL (140-440); RBC 4.27 X 10*6/uL (4.10-5.20); RDW 12.4 % (11.5-14.5); WBC 7.58 X 10*3/uL (4.50-10.00)
[2024-01-20 18:37] LABS: ALT 19 U/L (8-44); AST 17 U/L (13-35); Albumin 4.2 g/dL (3.8-4.9); Albumin/Globulin Ratio 1.83 Ratio (1.60-3.17); Alkaline Phosphatase 129 U/L (41-126); BUN/Creat Ratio 34.11 Ratio (12.00-20.00); Blood Urea Nitrogen 30.7 mg/dL (9.0-27.0); Calcium 9.5 mg/dL (8.7-10.3); Carbon Dioxide 24.7 mmol/L (21.6-31.8); Chloride 103 mmol/L (96-109); Chol/HDL Ratio 3.31 Ratio; Globulin 2.3 g/dL (1.6-3.3); Glucose 160 mg/dL (70-110); LDL Cholesterol,Calculated 92.9 mg/dL (0.0-131.0); Potassium 4.5 mmol/L (3.5-5.5); Sodium 139 mmol/L (135-145); Total Bilirubin 0.4 mg/dL (0.3-1.2); Total Protein 6.5 g/dL (6.2-8.2); Uric Acid 5.7 mg/dL (2.9-7.7); VLDL Calculation 12.54 mg/dL (5.00-40.00)
[2024-01-20 19:21] LABS: Microalbumin Creatinine Ratio <13 mg/g Cr (0-30); Urine Creatinine 92.1 mg/dL (28.0-217.0)
== END | disposition home or self-care (01) ==
LOC: LABWHC1 08:24
PROVIDERS: ATTEND Internal Medicine Geriatric Medicine
DX: I12.9 Hypertensive chronic kidney disease with stage 1 through stage 4 chronic kidney disease, or unspecified chronic kidney disease (principal); E11.22 Type 2 diabetes mellitus with diabetic chronic kidney disease; N18.9 Chronic kidney disease, unspecified
CPT/HCPCS: 36415; 80053; 80061; 82043; 82570; 83036; 84550; 85025

== ENCOUNTER → 2024-06-13 | Outpatient (CLI) | payer MEDICAID ==
--- NOTE | 2024-06-14 07:42 | XR ---
EXAMINATION TYPE: XR knee limited bilateral DATE OF EXAM: 06/13/2024 COMPARISON: 02/08/2018 CLINICAL INDICATION: Female, 64 years old with history of M25.561, M25.562; TECHNIQUE: Three views are submitted. FINDINGS: Left knee: Postsurgical changes with soft tissue areas of ossification appear chronic. No acute fract ure. No dislocation. Small suprapatellar bursal fluid collection. Tiny exostosis along the distal lat eral margin of the femoral diaphysis. Right knee: Moderate to severe narrowing of the medial compartment and patellofemoral compartment. Ma rginal spurring. No erosive changes. Enthesophytes along the patellar surface. Vascular calcification s. No acute fracture or dislocation. IMPRESSION: 1. Postsurgical change left knee compatible with prior arthroplasty. 2. Moderate to severe osteoarthritis right knee. [facility], , 06/14/2024 7:40 AM
== END | disposition home or self-care (01) ==
LOC: RADXRMAIN 15:45
PROVIDERS: ATTEND Orthopaedic Surgery
DX: M17.11 Unilateral primary osteoarthritis, right knee (principal); Z96.652 Presence of left artificial knee joint

== ENCOUNTER → 2024-07-26 | Outpatient (CLI) | payer MEDICAID ==
[2024-07-26 16:23] LABS: Basophils # (A) 0.09 X 10*3/uL (0.00-0.10); Basophils % (A) 0.9 %; Eosinophils % (A) 1.9 %; HCT 44.1 % (37.2-46.3); HGB 14.5 g/dL (12.0-15.0); Lymphocytes % (A) 21.4 %; MCH 30.4 pg (27.0-32.0); MCHC 32.9 g/dL (32.0-37.0); MCV 92.5 FL (80.0-97.0); Mean Platelet Volume 10.5 FL (9.5-12.2); Monocytes # (A) 0.46 X 10*3/uL (0.20-1.00); Monocytes % (A) 4.5 %; NRBC Per 100 WBC 0 X 10*3/uL (0.00-0.01); Neutrophils # (A) 7.28 X 10*3/uL (1.80-7.70); Platelet Count 216 X 10*3/uL (140-440); RBC 4.77 X 10*6/uL (4.10-5.20); RDW 12.2 % (11.5-14.5); WBC 10.26 X 10*3/uL (4.50-10.00)
[2024-07-26 16:52] LABS: ALT 17 U/L (8-44); AST 14 U/L (13-35); Albumin 4.2 g/dL (3.8-4.9); Albumin/Globulin Ratio 1.56 Ratio (1.60-3.17); Alkaline Phosphatase 136 U/L (41-126); BUN/Creat Ratio 24.33 Ratio (12.00-20.00); Blood Urea Nitrogen 21.9 mg/dL (9.0-27.0); Calcium 9.6 mg/dL (8.7-10.3); Carbon Dioxide 28.8 mmol/L (21.6-31.8); Chloride 102 mmol/L (96-109); Chol/HDL Ratio 2.67 Ratio; Globulin 2.7 g/dL (1.6-3.3); Glucose 88 mg/dL (70-110); Iron 117 UG/DL (50-170); Magnesium 1.8 mg/dL (1.5-2.4); Potassium 4.1 mmol/L (3.5-5.5); Sodium 141 mmol/L (135-145); T4, Free (Free Thyroxine) 1.26 ng/dL (0.80-1.80); Total Bilirubin 0.4 mg/dL (0.3-1.2); Total Iron Binding Capacity 412 UG/DL (228-460); Total Protein 6.9 g/dL (6.2-8.2); Uric Acid 4.9 mg/dL (2.9-7.7); VLDL Calculation 13.52 mg/dL (5.00-40.00)
== END | disposition home or self-care (01) ==
LOC: LABWHC1 08:43
PROVIDERS: ATTEND Internal Medicine Geriatric Medicine
DX: N18.9 Chronic kidney disease, unspecified (principal); D63.1 Anemia in chronic kidney disease; E11.22 Type 2 diabetes mellitus with diabetic chronic kidney disease; E07.9 Disorder of thyroid, unspecified
CPT/HCPCS: 36415; 80053; 80061; 83036; 83540; 83550; 83735; 84439; 84443; 84550; 85025

== ENCOUNTER → 2024-10-04 | Outpatient (CLI) | payer MEDICAID ==
[2024-10-04 15:15] LABS: ALT 20 U/L (8-44); AST 17 U/L (13-35); Albumin 4.4 g/dL (3.8-4.9); Albumin/Globulin Ratio 1.69 Ratio (1.60-3.17); Alkaline Phosphatase 147 U/L (41-126); BUN/Creat Ratio 23.56 Ratio (12.00-20.00); Blood Urea Nitrogen 21.2 mg/dL (9.0-27.0); Calcium 9.7 mg/dL (8.7-10.3); Carbon Dioxide 26.8 mmol/L (21.6-31.8); Chloride 101 mmol/L (96-109); Chol/HDL Ratio 2.93 Ratio; Globulin 2.6 g/dL (1.6-3.3); Glucose 86 mg/dL (70-110); LDL Cholesterol,Calculated 92.7 mg/dL (0.0-131.0); Potassium 4.2 mmol/L (3.5-5.5); Sodium 140 mmol/L (135-145); Total Bilirubin 0.5 mg/dL (0.3-1.2); VLDL Calculation 12.68 mg/dL (5.00-40.00)
[2024-10-04 19:01] LABS: Microalbumin Creatinine Ratio <44 mg/g Cr (0-30)
== END | disposition home or self-care (01) ==
LOC: LABWHC1 08:42
PROVIDERS: ATTEND Internal Medicine Geriatric Medicine
DX: I12.9 Hypertensive chronic kidney disease with stage 1 through stage 4 chronic kidney disease, or unspecified chronic kidney disease (principal); E11.22 Type 2 diabetes mellitus with diabetic chronic kidney disease; E78.2 Mixed hyperlipidemia; N18.9 Chronic kidney disease, unspecified
CPT/HCPCS: 36415; 80053; 80061; 82043; 82570; 83036

== ENCOUNTER → 2024-11-29 | Outpatient (CLI) | payer BC ==
--- NOTE | 2024-11-29 11:39 | MM ---
Reason for Exam: Screening (asymptomatic). Last mammogram was performed 1 year(s) and 1 month(s) ago. Patient History: Menarche at age 13. First Full-Term at age 25. Left ovary removed at age 53. Right ovary removed at age 53. Hysterectomy at age 53. Postmenopausal. Other cancer. Patient used Hormonal Contraceptives for 5 years. Paternal grandmother had breast cancer, age 70. Risk Values: Sarah 5 year model risk: 1.8%. NCI Lifetime model risk: 7.2%. Prior Study Comparison: 10/08/2021 Bilateral Screening Mammogram, [facility]. 10/09/2022 Bilateral MG 3D screening mammo w/cad, [facility]. 10/12/2023 Bilateral MG 3D screening mammo w/cad, [facility]. Tissue Density: The breasts are heterogeneously dense, which may obscure small masses. Findings: Analyzed By CAD. There is no suspicious group of microcalcifications or new suspicious mass in either breast. Overall Assessment: Benign, BI-RAD 2 Management: Screening Mammogram of both breasts in 1 year. Patient should continue monthly self-breast exams. A clinical breast exam by your physician is recommended on an annual basis. This exam should not preclude additional follow-up of suspicious palpable abnormalities. Note on Sarah scores and lifetime risk: 1. A Sarah score greater than 3% is considered moderate risk. If this is the case, consider specialist referral to assess eligibility for a risk reducing agent. 2. If overall lifetime risk for the development of breast cancer is 20% or higher, the patient may qualify for future screening with alternating mammogram and breast MRI. [facility], , 11/29/2024 9:24 AM. Electronically signed and approved by: Jeramy Weathers M.D. [facility]
== END | disposition home or self-care (01) ==
LOC: RADMAMWWP 08:53
PROVIDERS: ATTEND Internal Medicine Geriatric Medicine
DX: Z12.31 Encounter for screening mammogram for malignant neoplasm of breast (principal); R92.333 Mammographic heterogeneous density, bilateral breasts; Z78.0 Asymptomatic menopausal state; Z80.3 Family history of malignant neoplasm of breast; Z92.0 Personal history of contraception
CPT/HCPCS: 77063; 77067